=== PATIENT | female | born 1965 | race Caucasian/White ===

== ENCOUNTER 2019-07-02 23:26 | Emergency (ER) | payer OTHER ==
[~2019-07-02] VITALS: Ht 152.4 cm; Wt 70.3 kg
--- OUTSIDE RECORDS SUMMARY | 2019-07-02 23:31 | XMS REPORT | Continuity of Care Document ---
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 Role Phone [employer] Unavailable Unavailable Problems Problem Status Onset Date Classification Date Reported Comments Source Migraine, unspecified, not intractable, without status migrainosus 07/08/2018 01/13/2019 [facility] HEADACHE Active 06/26/2018 [facility] HEADACHE, NAUSEA WITH VOMITING Active 06/26/2018 [facility] ROUTINE Active 09/16/2013 [facility] OVERDOSE Active 08/19/2012 [facility] Morbid (severe) obesity due to excess calories 01/13/2019 [facility] Body mass index (BMI) 30.0-30.9, adult 01/13/2019 [facility] Other and unspecified hyperlipidemia Active Problem 12/28/2018 [facility] Acute non-recurrent maxillary sinusitis Active Diagnosis 12/28/2018 [facility] Anxiety state Active Problem 12/28/2018 [facility] Vitamin D deficiency Active Problem 12/28/2018 [facility] LGSIL (low grade squamous intraepithelial lesion) on Pap smear Active Problem 08/28/2018 [facility] Other headache syndrome Active Problem 07/04/2018 [facility] Human papillomavirus Active Problem 12/28/2018 [facility] Attention deficit disorder Active Problem 12/28/2018 [facility] Acute URI Active Diagnosis 05/10/2017 [facility] Cough Active Diagnosis 12/28/2018 [facility] Acute upper respiratory infection, unspecified Active Diagnosis 03/22/2017 [facility] Sore throat Active Diagnosis 07/02/2018 [facility] Nasal turbinate hypertrophy Active Diagnosis 04/10/2018 [facility] Acute recurrent maxillary sinusitis Active Diagnosis 04/10/2018 [facility] Nasal septal deviation Active Diagnosis 04/10/2018 [facility] Chronic sinusitis, unspecified location Active Problem 12/28/2018 [facility] Allergic rhinitis, unspecified seasonality, unspecified trigger Active Problem 12/28/2018 [facility] 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 [facility] Sinus pressure Active Diagnosis 04/20/2018 [facility] Anxiety Active Problem 03/15/2016 [facility] Hyperlipidemia Active Problem 03/15/2016 [facility] ADD (attention deficit disorder) Active Problem 03/15/2016 [facility] Genital warts Active Diagnosis 08/28/2013 [facility] Screening for STD (sexually transmitted disease) Active Diagnosis 08/28/2013 [facility] Pharyngitis Active Diagnosis 08/28/2013 [facility] Body aches Active Diagnosis 07/18/2013 [facility] Otalgia Active Diagnosis 08/07/2013 [facility] Flu vaccine need Active Diagnosis 08/07/2013 [facility] Acute sinusitis Active Diagnosis 04/20/2014 [facility] Serous otitis media Active Diagnosis 04/20/2014 [facility] Achilles tendinitis of left lower extremity Active Diagnosis 08/28/2018 [facility] Chronic fatigue Active Diagnosis 07/20/2013 [facility] Chronic EBV infection Active Diagnosis 07/20/2013 [facility] HPV (human papilloma virus) infection Active Problem 03/15/2016 [facility] Vitamin d deficiency Active Problem 03/15/2016 [facility] Routine gynecological examination Active Diagnosis 09/21/2013 [facility] Nasal sinus congestion Active Diagnosis 11/01/2013 [facility] Cough Active Diagnosis 02/15/2015 [facility] Upper respiratory infection Active Diagnosis 02/15/2015 [facility] Motion sickness Active Diagnosis 01/15/2014 [facility] Chronic serous otitis media Active Diagnosis 04/20/2014 [facility] Sore throat Active Diagnosis 04/20/2015 [facility] Left ankle pain Active Diagnosis 06/08/2015 [facility] URI (upper respiratory infection) Active Diagnosis 10/26/2015 [facility] SOB (shortness of breath) Active Diagnosis 10/26/2015 [facility] Left ankle sprain Active Diagnosis 03/22/2015 [facility] Acute sinusitis, unspecified Active Diagnosis 01/20/2016 [facility] Fever Active Diagnosis 04/20/2015 [facility] Influenza A Active Diagnosis 04/20/2015 [facility] Sinusitis Active Diagnosis 04/20/2015 [facility] Shingles Active Diagnosis 04/26/2016 [facility] Joint pain Active Diagnosis 04/26/2016 [facility] Left ankle swelling Active Diagnosis 04/26/2016 [facility] Low back pain Active Diagnosis 04/26/2016 [facility] Body aches Active Diagnosis 04/26/2016 [facility] Anxiety Active Diagnosis 04/17/2016 [facility] Screening for breast cancer Active Diagnosis 04/17/2016 [facility] Upper respiratory infection Active Diagnosis 03/15/2016 [facility] Screening for colon cancer Active Diagnosis 10/29/2016 [facility] Urticaria Active Diagnosis 10/29/2016 [facility] LGSIL on Pap smear of cervix Active Problem 12/28/2018 [facility] Hives Active Diagnosis 11/20/2016 [facility] LT ANKLE PAIN Active [facility] [place] LT ANKLE Active [facility] HEADACHE Active [facility] NAUSEA WITH VOMITING, UNSPECIFIED Active [facility] Medications Medication Details Route Status Patient Instructions Ordering Provider Order Date Source ProAir HFA 2 puffs as needed Inhalation Active 108 (90 Base) MCG/ACT Inhalation every 6 hrs [place] 12/21/2018 [facility] Levaquin 1 tablet Orally Active 500 mg Orally Once a day [place] 12/21/2018 [facility] Medrol (Jermain) as directed Orally Active 4 mg Orally as directed [place] 08/27/2018 [facility] Medrol (Jermain) as directed Orally Active 4 MG Orally [place] 08/25/2018 [facility] Tramadol HCl 1 tablet as needed Orally Active 50 mg Orally every 8 hrs PRN [place] 07/03/2018 [facility] Imitrex 1 tablet as needed Orally Active 50 mg Orally 1 tablet PO QD, repeat in 1 hour if no improvement in symptoms [place] 07/01/2018 [facility] Singulair 10 mg, 1 tab, Route: PO, Drug form: TAB, QPM, Dosing Weight 72.727, kg, Start date: 06/27/18 17:00:00 CDT, Duration: 30 day, Stop date: 07/26/18 17:00:00 CDTNotes: (Same as:Singulair) No Longer Active 06/27/2018 [facility] Bystolic 10 mg, 1 tab, Route: PO, Drug form: TAB, Daily, Dosing Weight 72.727, kg, Start date: 06/27/18 9:00:00 CDT, Duration: 30 day, Stop date: 07/26/18 9:00:00 CDTNotes: (same as: Bystolic) No Longer Active 06/27/2018 [facility] Sertraline 50 mg, 1 tab, Route: PO, Drug form: TAB, Daily, Dosing Weight 72.727, kg, Start date: 06/27/18 9:00:00 CDT, Duration: 30 day, Stop date: 07/26/18 9:00:00 CDTNotes: (Same as: Zoloft) No Longer Active 06/27/2018 [facility] methylPREDNISolone SODium SUCCinate 250 mg + Dextrose 5% in Water IV 100 mL Route: IVPB, Drug form: INJ, ONCE, Dosing Weight 72.727, kg, Priority: STAT, Start date: 06/26/18 14:36:00 CDT, Stop date: 06/26/18 14:36:00 CDTNotes: (Same as:Solu-MEDROL, A-Methapred) MEDICATION WASTE Product Size: 500 mg Product Wasted: ___ mg Inactive 06/26/2018 [facility] Sumatriptan 50 MG Oral Tablet [Imitrex] 50 mg, 2 tab, Route: PO, Drug form: TAB, Q2H, Dosing Weight 72.727, kg, PRN Headache 4-6, Priority: STAT, Start date: 06/26/18 8:09:00 CDT, Duration: 30 day, Stop date: 07/26/18 8:08:00 CDTNotes: (Same As: Imitrex) Inactive 06/26/2018 [facility] Acetaminophen 325 MG / Hydrocodone Bitartrate 5 MG Oral Tablet 1 tab, Route: PO, Drug Form: TAB, Dosing Weight 72.727, kg, Q4H, PRN Pain Score 4-6, Start date: 06/26/18 4:33:00 CDT, Duration: 30 day, Stop date: 07/26/18 4:32:00 CDTNotes: (Same as: [place] 325/5) Do not exceed 4gm/day of acetaminophen. Inactive 06/26/2018 [facility] Ondansetron 4 mg, 2 mL, Route: IVP, Drug form: INJ, Q6H, Dosing Weight 72.727, kg, PRN Nausea & Vomiting, Start date: 06/26/18 4:33:00 CDT, Duration: 30 day, Stop date: 07/26/18 4:32:00 CDTNotes: (Same as: [place]) MEDICATION WASTE Product Size: 4 mg Product Wasted: ___ mg Inactive 06/26/2018 [facility] Acetaminophen 650 mg, 2 tab, Route: PO, Drug form: TAB, Q4H, Dosing Weight 72.727, kg, PRN Pain 1-3/Temp > 100.4 F, Start date: 06/26/18 4:33:00 CDT, Duration: 30 day, Stop date: 07/26/18 4:32:00 CDTNotes: Do not exceed 4 gm/day. (Same as: Tylenol) Inactive 06/26/2018 [facility] Bromfed DM 10 ml as needed Orally Active 30-2-10 MG/5ML Orally every 4 hrs Isaías 06/18/2018 [facility] Zithromax Z-Jermain 2 tablets on the first day, then 1 tablet daily for 4 days Orally Active 250 MG Orally Once a day Isaías 06/18/2018 [facility] Cipro 1 tablet Orally Active 500 mg Orally twice a day (bid) [place] 04/09/2018 [facility] Benzonatate 1 capsule Orally Active 200 MG Orally Q8 PRN [place] 04/07/2018 [facility] Levaquin 1 tablet Orally Active 500 mg Orally Once a day [facility]ry [place] 12/19/2017 [facility] ZyrTEC 1 tablet Orally Active 10 MG Orally prn [place] 05/07/2017 [facility] Bromfed DM 10 ml as needed Orally Active 30-2-10 MG/5ML Orally every 6 hrs Christi 05/07/2017 [facility] Zithromax Z-Jermain 2 tablets on the first day, then 1 tablet daily for 4 days Orally Active 250 MG Orally Once a day [place] 03/19/2017 [facility] Medrol (Jermain) as directed Orally Active 4 MG Orally as directed Christi 11/18/2016 [facility] Levaquin 1 tablet Orally Active 500 MG Orally Once a day [place] 10/25/2016 [facility] Loratadine 1 tablet Orally Active 10 MG Orally Once a day Christi 10/25/2016 [facility] Zithromax 2 tablets on the first day, then 1 tablet daily for 4 days Orally Active 250 MG Orally Once a day Christi 09/03/2016 [facility] Naproxen 1 tablet as needed Orally Active 500 MG Orally every 12 hrs prn Christi 09/03/2016 [facility] Naproxen 1 tablet Orally Active 375 MG Orally Twice a day [place] 04/24/2016 [facility] Lidoderm 1 patch to intact skin remove after 12 hours Externally Active 5 % Externally Once a day [place] 04/12/2016 [facility] Valtrex 1 tablet Orally Active 1 GM Orally every 8 hours [place] 04/12/2016 [facility] Levaquin 1 tablet Orally Active 500 mg Orally Once a day Christi 03/13/2016 [facility] Bromfed DM 10 ml as needed Orally Active 30-2-10 MG/5ML Orally every 6 hrs prn Christi 03/13/2016 [facility] Norel AD 1 tablet as needed Orally Active 4-10-325 MG Orally every 4-6 hours Christi 01/18/2016 [facility] Bromfed DM 10 ml as needed Orally Active 30-2-10 MG/5ML Orally every 6 hrs Christi 01/18/2016 [facility] Levaquin 1 tablet Orally Active 500 mg Orally Once a day Christi 01/18/2016 [facility] ProAir HFA 2 puffs as needed Inhalation Active 108 (90 Base) MCG/ACT Inhalation every 4 hrs [facility] 10/24/2015 [facility] Levaquin 1 tablet Orally Active 500 mg Orally Once a day [facility] 10/24/2015 [facility] Bromfed DM 10 ml as needed Orally Active 30-2-10 MG/5ML Orally every 6 hrs as needed [facility] 10/24/2015 [facility] Naproxen 1 tablet as needed Orally Active 500 mg Orally every 12 hrs [place] 05/02/2015 [facility] Bromfed DM 10 ml as needed Orally Active 30-2-10 MG/5ML Orally every 6 hrs [facility] 04/18/2015 [facility] Tamiflu 1 capsule Orally Active 75 mg Orally Twice a day [facility] 04/18/2015 [facility] Zithromax Z-Jermain 2 tablets on the first day, then 1 tablet daily for 4 days Orally Active 250 MG Orally Once a day [facility] 04/18/2015 [facility] Medrol (Jermain) as directed Orally Active 4 mg Orally daily [place] 03/20/2015 [facility] Bromfed DM 10 ml as needed Orally Active 30-2-10 MG/5ML Orally every 6 hrs [place] 02/13/2015 [facility] Zorvolex 1 capsule Orally Active 35 MG Orally Three times a day as needed for foot pain [place] 01/17/2015 [facility] Singulair 1 tablet in the evening Orally Active 10 mg Orally Once a day [facility] 03/16/2014 [facility] Dallergy 1 tablet Orally Active 25-10 MG Orally every six to [address] [facility] 03/16/2014 [facility] Bactrim DS 1 tablet Orally Active 800-160 MG Orally every [address] [facility] 03/16/2014 [facility] Xyzal 1 tablet in the evening Orally Active 5 MG Orally Once a day [facility] 01/19/2014 [facility] Dallergy 1 tablet Orally No Longer Active 25-10 MG Orally every six to eight hours as needed [place] 01/13/2014 [facility] Scopolamine Base as directed Transdermal Active 1.5 MG Transdermal apply one patch every 3 days as needed [place] 01/13/2014 [facility] Levaquin 1 tablet Orally Active 500 mg Orally Once a day [place] 01/13/2014 [facility] Nasonex 2 sprays in each nostril Nasally Active 50 MCG/ACT Nasally Once a day [place] 01/13/2014 [facility] Levaquin 1 tablet Orally Active 500 mg Orally Once a day [facility] 10/27/2013 [facility] Bromfed DM 10 ml as needed Orally Active 30-2-10 MG/5ML Orally every 6 hrs [facility] 10/27/2013 [facility] Vitamin D (Ergocalciferol) 1 capsule Orally Active 22063 UNIT Orally weekly [place] 09/23/2013 [facility] Vitamin D (Ergocalciferol) 1 capsule Orally Active 76641 UNIT Orally weekly [place] 09/23/2013 [facility] Podofilox 1 application to affected area Externally Active 0.5 % Externally Twice a day for 3 days, then 4 days of no treatment, may repeat for up to 4 cycles [place] 08/24/2013 [facility] Dallergy as directed Orally Active 25-10 MG Orally every six to eight hours PRN [place] 08/03/2013 [facility] A/B Otic 1 drop affected ear canal into affected ear Otic Active 5.4-1.4 % Otic Three times a day [place] 08/03/2013 [facility] Levaquin 1 tablet Orally Active 500 mg Orally Once a day [place] 08/03/2013 [facility] Zithromax Z-Jermain 2 tablets on the first day, then 1 tablet daily for 4 days Orally Active 250 MG Orally Once a day Isaías 06/24/2013 [facility] Ativan 2 mg, 1 tab, Route: PO, Drug form: TAB, ONCE, Dosing Weight 76.364, kg, Priority: STAT, Start date: 08/19/12 20:32:00, Stop date: 08/19/12 20:32:00 PO No Longer Active [place] 08/20/2012 [facility] Bystolic 10 mg oral tablet 10 mg, 1 tab, PO, Daily, 30 tab, Substitution Allowed, TAB PO Active 08/19/2012 [facility] sertraline 50 mg oral tablet 50 mg, 1 tab, PO, Daily, 90 tab, Substitution Allowed, TAB PO Active 08/19/2012 [facility] Xanax 0.25 mg oral tablet 0.25 mg, 1 tab, PO, BID, PRN, 20 tab, anxiety, stress, Substitution Allowed PO Active 08/19/2012 [facility] ProAir HFA 2 puffs as needed Inhalation Active 108 (90 Base) MCG/ACT Inhalation every 4 hrs [facility] Breo Ellipta 1 puff Inhalation Active 200-25 MCG/INH Inhalation prn [facility] Adderall XR 1 capsule Orally Active 20 mg Orally Once a day Thierry Hope [facility] ProAir HFA 2 puffs as needed Inhalation Active 108 (90 Base) MCG/ACT [facility] Adderall XR 1 capsule Orally Active 20 mg Orally Once a day [place] [facility] Flonase 1 spray in each nostril Nasally Active 50 MCG/DOSE Nasally Once a day Isa[address] [facility] Excedrin Migraine 2 tablets as needed Orally Active 250-250-65 MG Orally every 6 hrs [facility] Breo Ellipta 1 puff Inhalation Active 200-25 MCG/INH Inhalation prn [facility] Vyvanse 1 capsule in the morning Orally Active 20 MG Orally [facility] Zoloft 1 tablet Orally Active 50 MG Orally Once a day [facility] Clindamycin HCl 1 capsule Orally Active 300 MG Orally Four times a day [facility] Advil 1 tablet as needed Orally Active 200 MG Orally every 6 hrs [facility] Mucinex 1 tablet as needed Orally Active 600 MG Orally every 12 hrs [facility] Mucinex 1 tablet as needed Orally Active 600 MG Orally every [address] [facility] Prempro 1 tablet Orally Active 0.625-2.5 MG Orally Once a day [place] [facility] Adderall XR 1 capsule in the morning Orally Active Orally Once a day [place] [facility] Amphetamine-Dextroamphetamine 1/2 tablet Oral Active 20 mg Oral daily Isaías [facility] Allergies, Adverse Reactions, Alerts Substance Category Reaction Severity Reaction type Status Date Reported Comments Source penicillin Adverse Reaction hives Adverse Reaction Active 08/25/2018 [facility] wheat Adverse Reaction Info Not Available Adverse Reaction Active 08/25/2018 [facility] Iodine Adverse Reaction difficulty breathing Adverse Reaction Active 12/21/2018 [facility] iodine Assertion Drug allergy Active [facility] penicillins Assertion Drug allergy Active [facility] Immunizations Immunization Date Given Site Status Last Updated Comments Source FLU 3YRS & [place] [id number] 08/03/[address] [facility] Results Order Name Results Value Reference Range Date Interpretation Comments Source CHEM PANEL Magnesium Lvl 2.3 1.8 - 2.4 06/26/2018 [facility] CHEM PANEL eGFR 101 06/26/2018 Result Comment: The eGFR is calculated using the CKD-EPI formula. In most young, healthy individuals the eGFR will be >90 mL/min/1.73m2. The eGFR declines with age. An eGFR of 60-89 may be normal in some populations, particularly the elderly, for whom the CKD-EPI formula has not been extensively validated. Use of the eGFR is not recommended in the following populations:

Individuals with unstable creatinine concentrations, including patients and those with serious co-morbid conditions.

Patients with extremes in muscle mass or diet.

The data above are obtained from the National Kidney Disease Education Program (NKDEP) which additionally recommends that when the eGFR is used in patients with extremes of body mass index for purposes of drug dosing, the eGFR should be multiplied by the estimated BMI. [facility] CHEM PANEL Calcium Lvl 8.3 8.5 - 10.5 06/26/2018 [facility] CHEM PANEL CO2 29 24 - 32 06/26/2018 [facility] CHEM PANEL Potassium Lvl 4.0 3.5 - 5.1 06/26/2018 [facility] CHEM PANEL Sodium Lvl 146 135 - 145 06/26/2018 [facility] CHEM PANEL Chloride Lvl 109 95 - 109 06/26/2018 [facility] CHEM PANEL Bili Total 0.3 0.2 - 1.3 06/26/2018 [facility] CHEM PANEL AST 113 0 - 37 06/26/2018 [facility] CHEM PANEL ALT 76 0 - 65 06/26/2018 [facility] CHEM PANEL Alk Phos 102 39 - 136 06/26/2018 [facility] CHEM PANEL Total Protein 6.5 6.4 - 8.4 06/26/2018 [facility] CHEM PANEL Albumin Lvl 3.2 3.5 - 5.0 06/26/2018 [facility] CHEM PANEL Creatinine Lvl 0.70 0.50 - 1.40 06/26/2018 [facility] CHEM PANEL BUN 13 7 - 22 06/26/2018 [facility] CHEM PANEL Glucose Lvl 110 70 - 99 06/26/2018 [facility] CHEM PANEL Globulin 3.3 2.7 - 4.2 06/26/2018 [facility] CHEM PANEL A/G Ratio 1.0 0.7 - 1.6 06/26/2018 [facility] CHEM PANEL B/C Ratio 19 6 - 25 06/26/2018 [facility] CHEM PANEL AGAP 12.0 10.0 - 20.0 06/26/2018 [facility] HEMATOLOGY Eosinophils 0.9 0.0 - 4.0 06/26/2018 [facility] HEMATOLOGY Lymphocytes 25.8 20.0 - 40.0 06/26/2018 [facility] HEMATOLOGY Monocytes # 0.7 0.0 - 0.8 06/26/2018 [facility] HEMATOLOGY Monocytes 9.2 2.0 - 12.0 06/26/2018 [facility] HEMATOLOGY Segs 63.4 45.0 - 75.0 06/26/2018 [facility] HEMATOLOGY Lymphocytes # 2.1 1.0 - 5.5 06/26/2018 [facility] HEMATOLOGY Basophils 0.7 0.0 - 1.0 06/26/2018 [facility] HEMATOLOGY Neutrophils # 5.1 1.5 - 8.1 06/26/2018 [facility] HEMATOLOGY Eosinophils # 0.1 0.0 - 0.5 06/26/2018 [facility] HEMATOLOGY Basophils # 0.1 0.0 - 0.2 06/26/2018 [facility] HEMATOLOGY MCH 28.7 27.0 - 31.0 06/26/2018 [facility] RDW 13.0 11.5 - 14.5 06/26/2018 [facility] HEMATOLOGY MCHC 34.2 32.0 - 36.0 06/26/2018 [facility] HEMATOLOGY Platelet 226 133 - 450 06/26/2018 [facility] MCV 83.8 80.0 - 98.0 06/26/2018 [facility] MPV 7.1 7.4 - 10.4 06/26/2018 [facility] WBC 8.0 3.7 - 10.4 06/26/2018 [facility] RBC 4.41 4.20 - 5.40 06/26/2018 [facility] Hgb 12.6 12.0 - 16.0 06/26/2018 [facility] Hct 36.9 36.0 - 48.0 06/26/2018 [facility] CHEMISTRY Etoh (%) <0.003 08/19/2012 NA <sup>4</sup>Interpretive Data: Negative Range: <0.003%
Toxic Range: >0.25% [facility] CHEMISTRY Ethanol Lvl <3 08/19/2012 NA <sup>5</sup>Interpretive Data: Negative Range: <3 mg/dL
Toxic Range: >250 mg/dL [facility] CHEMISTRY Salicylate Lvl <1.7 0.0 - 30.0 08/19/2012 Normal [facility] CHEMISTRY Acetaminoph Lvl <2 10 - 20 08/19/2012 LOW [facility] CHEMISTRY U Preg Negative (08/19/2012 14:10:00) Negative 08/19/2012 Normal [facility] CHEMISTRY eGFR 89 08/19/2012 NA <sup>1</sup>Result Comment: The eGFR is calculated using the CKD-EPI formula. In most young, healthy individuals the eGFR will be >90 mL/min/1.73m2. The eGFR declines with age. An eGFR of 60-89 may be normal in some populations, particularly the elderly, for whom the CKD-EPI formula has not been extensively validated. Use of the eGFR is not recommended in the following populations:& lt;br/>
Individuals with unstable creatinine concentrations, including patients and those with serious co-morbid conditions.

Patients with extremes in muscle mass or diet.

The data above are obtained from the National Kidney Disease Education Program (NKDEP) which additionally recommends that when the eGFR is used in patients with extremes of body mass index for purposes of drug dosing, the eGFR should be multiplied by the estimated BMI. [facility] CHEMISTRY Glucose Lvl 86 70 - 99 08/19/2012 Normal <sup>2</sup>Interpretive Data: Adult reference range values reflect the clinical guidelines
of the [place] [employer]. [facility] CHEMISTRY Creatinine Lvl 0.8 0.5 - 1.4 08/19/2012 Normal [facility] CHEMISTRY BUN 10 7 - 22 08/19/2012 Normal [facility] CHEMISTRY Potassium Lvl 4.0 3.5 - 5.1 08/19/2012 Normal [facility] CHEMISTRY Sodium Lvl 142 135 - 145 08/19/2012 Normal [facility] CHEMISTRY Albumin Lvl 3.3 3.5 - 5.0 08/19/2012 LOW [facility] CHEMISTRY Calcium Lvl 8.6 8.5 - 10.5 08/19/2012 Normal [facility] CHEMISTRY CO2 26 24 - 32 08/19/2012 Normal [facility] CHEMISTRY Chloride Lvl 108 95 - 109 08/19/2012 Normal [facility] CHEMISTRY Bili Total 0.3 0.2 - 1.3 08/19/2012 Normal [facility] CHEMISTRY AST 13 0 - 37 08/19/2012 Normal [facility] CHEMISTRY ALT 30 0 - 65 08/19/2012 Normal [facility] CHEMISTRY Alk Phos 71 39 - 136 08/19/2012 Normal [facility] CHEMISTRY Total Protein 6.6 6.4 - 8.4 08/19/2012 Normal [facility] CHEMISTRY B/C Ratio 12 6 - 25 08/19/2012 Normal [facility] CHEMISTRY AGAP 12.0 10.0 - 20.0 08/19/2012 Normal [facility] CHEMISTRY A/G Ratio 1.0 0.7 - 1.6 08/19/2012 Normal [facility] CHEMISTRY Globulin 3.3 2.0 - 4.0 08/19/2012 Normal [facility] CHEMISTRY U Phencyc Scr Negative *NA* (08/19/2012 14:10:00) Negative 08/19/2012 NA [facility] CHEMISTRY U Opiate Scr Negative *NA* (08/19/2012 14:10:00) Negative 08/19/2012 NA [facility] CHEMISTRY U Amph Scr Negative *NA* (08/19/2012 14:10:00) Negative 08/19/2012 NA [facility] CHEMISTRY U Cannab Scr Negative *NA* (08/19/2012 14:10:00) Negative 08/19/2012 NA [facility] CHEMISTRY U Cocaine Scr Negative *NA* (08/19/2012 14:10:00) Negative 08/19/2012 NA [facility] CHEMISTRY U Benzodia Scr Positive *ABN* (08/19/2012 14:10:00) Negative 08/19/2012 ABN [facility] CHEMISTRY UDS Note See Note 3 (08/19/2012 14:10:00) 08/19/2012 Normal <sup>3</sup>Interpretive Data: Drugs reported as positive have not been confirmed by a second
method and should be used for medical purposes only. To order
confirmation, contact laboratory.

note: Below are cut-off concentrations for all urine drugs of
abuse performed in the laboratory. Some drugs listed in the table
may not be included in this panel.

Description Cut-off concentration

Amphetamine 1000 ng/mL
Barbiturates 200 ng/mL
Benzodiazepines 300 ng/mL
Cocaine metabolites 300 ng/mL
Opiates 300 ng/mL
Phencyclidine 25 ng/mL
Propoxyphene 300 ng/mL
Marijuana metabolites 50 ng/mL
Methadone 300 ng/m L
Urine alcohol 20 mg/dL [facility] CHEMISTRY U Diana Scr Negative *NA* (08/19/2012 14:10:00) Negative 08/19/2012 NA [facility] HEMATOLOGY MCV 85.8 81.0 - 99.0 08/19/2012 Normal [facility] HEMATOLOGY Hct 38.0 36.0 - 48.0 08/19/2012 Normal [facility] HEMATOLOGY Hgb 12.7 12.0 - 16.0 08/19/2012 Normal [facility] HEMATOLOGY RBC 4.43 4.20 - 5.40 08/19/2012 Normal [facility] HEMATOLOGY WBC 7.6 3.7 - 10.4 08/19/2012 Normal [facility] HEMATOLOGY Platelet 233 133 - 450 08/19/2012 [facility] HEMATOLOGY MPV 7.8 7.4 - 10.4 08/19/2012 Normal [facility] HEMATOLOGY RDW 13.8 11.5 - 14.5 08/19/2012 Normal [facility] HEMATOLOGY MCHC 33.5 32.0 - 36.0 08/19/2012 Normal [facility] HEMATOLOGY MCH 28.7 27.0 - 31.0 08/19/2012 Normal [facility] HEMATOLOGY Basophils # 0.0 0.0 - 0.2 08/19/2012 [facility] HEMATOLOGY Eosinophils # 0.1 0.0 - 0.5 08/19/2012 Normal [facility] HEMATOLOGY Monocytes # 0.5 0.0 - 0.8 08/19/2012 [facility] HEMATOLOGY Lymphocytes # 1.7 1.0 - 5.5 08/19/2012 Normal [facility] HEMATOLOGY Eosinophils 1.2 0.0 - 4.0 08/19/2012 Normal [facility] HEMATOLOGY Monocytes 6.3 2.0 - 12.0 08/19/2012 [facility] HEMATOLOGY Lymphocytes 23.0 20.0 - 40.0 08/19/2012 [facility] HEMATOLOGY Segs 69.3 45.0 - 75.0 08/19/2012 [facility] HEMATOLOGY Segs-Bands # 5.2 1.5 - 8.1 08/19/2012 Normal [facility] HEMATOLOGY Basophils 0.2 0.0 - 1.0 08/19/2012 [facility] URINALYSIS UA Urobilinogen 0.1 - 1.0 08/19/2012 [facility] URINALYSIS UA Color Ltyellow 08/19/2012 [facility] URINALYSIS UA Leuk Est Negative (08/19/2012 14:10:00) Negative 08/19/2012 [facility] URINALYSIS UA Sq Epi Occasional /LPF *NA* (08/19/2012 14:10:00) Few 08/19/2012 [facility] URINALYSIS UA WBC <1 0 - 5 08/19/2012 [facility] URINALYSIS UA RBC <1 0 - 2 08/19/2012 Normal [facility] URINALYSIS UA Mucus Few /LPF *NA* (08/19/2012 14:10:00) None Seen 08/19/2012 [facility] URINALYSIS UA Bili Negative *NA* (08/19/2012 14:10:00) Negative 08/19/2012 NA [facility] URINALYSIS UA Blood Negative (08/19/2012 14:10:00) Negative 08/19/2012 Normal [facility] URINALYSIS UA Nitrite Negative (08/19/2012 14:10:00) Negative 08/19/2012 Normal [facility] URINALYSIS UA Spec Grav 1.005 <=1.030 08/19/2012 Normal [facility] URINALYSIS UA pH 5.0 5.0 - 8.0 08/19/2012 Normal [facility] URINALYSIS UA Protein Negative mg/dL (08/19/2012 14:10:00) Negative 08/19/2012 Normal [facility] URINALYSIS UA Ketones Negative mg/dL *NA* (08/19/2012 14:10:00) Negative 08/19/2012 NA [facility] URINALYSIS UA Glucose Negative mg/dL *NA* (08/19/2012 14:10:00) Negative 08/19/2012 NA [facility] URINALYSIS UA Turbidity Clear (08/19/2012 14:10:00) Clear 08/19/2012 Normal [facility] Pathology Reports No Data Provided for This Section Diagnostic Reports Report Value Date Source Brain wo contrast MRA Patient Name: COLLEEN NOGUERA : 1965; Age: 52 years y/o Female MR: [id number] Study: Brain wo contrast MRA 06/26/2018 8:11 AM CDT Ordering Physician: Evy Garcia MD Clinical Indication: Headache Primary [place] - new onset headaches; Comparison: None Technique: Magnetic resonance angiography of the [place] was performed without contrast. 3D reconstructed images were created. FINDINGS: The petrous, cavernous, ophthalmic and supraclinoid portions of the bilateral internal carotid arteries have normal caliber. The A1 and A2 segments of the bilateral anterior cerebral arteries are unremarkable. Bilateral middle cerebral arteries and its proximal branches have normal caliber. Bilateral vertebral arteries, basilar artery, and posterior cerebral arteries are unremarkable. Posterior communicating arteries are not visualized There is no aneurysm or vascular malformation. IMPRESSION: 1. Grossly normal [place]. 2. No definite cerebral aneurysm detected. SL: [id number] 06/26/2018 [facility] Brain w/wo contrast MRI EXAM: MRI BRAIN WITHOUT AND WITH CONTRAST DATE: 06/26/2018 6:31 AM CDT INDICATION: Headache Primary [place] - headache ADDITIONAL INFORMATION AND CONTRAST: 15ml Dotarem COMPARISON: None. TECHNIQUE: Multiplanar, mutisequence MRI of the brain without and with contrast. FINDINGS: Diffusion weighted images demonstrate no focal signal abnormality. There are multiple scattered nonspecific foci of T2/FLAIR signal abnormality may reflect migraine-related change or mild chronic small vessel ischemic change. No acute intracranial hemorrhage detected. The ventricles are normal in size and symmetric. No extra-axial fluid collection identified. Purdy-white distinction is preserved. No mass lesion or midline shift detected. The intracranial arterial and venous structures demonstrate normal flow voids. Postcontrast sequences demonstrate no definite abnormal enhancement. No definite enhancing parenchymal lesion detected. The visible paranasal sinuses and skull base are unremarkable. IMPRESSION: 1. No definite acute infarct or intracranial hemorrhage detected. 2. Multiple scattered nonspecific foci of T2/FLAIR signal abnormality may reflect migraine-related change or mild chronic small vessel ischemic change. SL: [id number] 06/26/2018 [facility] Consultation Notes No Data Provided for This Section Discharge Summaries No Data Provided for This Section History and Physicals No Data Provided for This Section Vital Signs Vital Sign Value Date Comments Source Weight 167 12/21/2018 [facility] Height 60 12/21/2018 [facility] Temperature Oral (F) 98.6 F 12/21/2018 [facility] Heart Rate 76 12/21/2018 [facility] Diastolic (mm Hg) 74 12/21/2018 [facility] Systolic (mm Hg) 128 12/21/2018 [facility] Weight 164 08/25/2018 [facility] Height 60 08/25/2018 [facility] Heart Rate 70 08/25/2018 [facility] Diastolic (mm Hg) 70 08/25/2018 [facility] Systolic (mm Hg) 120 08/25/2018 [facility] Weight 160 07/01/2018 [facility] Height 60 07/01/2018 [facility] Heart Rate 96 07/01/2018 [facility] Diastolic (mm Hg) 100 07/01/2018 [facility] Systolic (mm Hg) 140 07/01/2018 [facility] Systolic (mm Hg) 165 06/26/2018 [facility] Diastolic (mm Hg) 95 06/26/2018 [facility] Temperature Oral (F) 98.4 F 06/26/2018 [facility] Respitory Rate 17 06/26/2018 [facility] Heart Rate 71 06/26/2018 [facility] Systolic (mm Hg) 132 06/26/2018 [facility] Diastolic (mm Hg) 86 06/26/2018 [facility] Respitory Rate 17 06/26/2018 [facility] Heart Rate 65 06/26/2018 [facility] Temperature Oral (F) 98.0 F 06/26/2018 [facility] Heart Rate 64 06/26/2018 [facility] Respitory Rate 17 06/26/2018 [facility] Systolic (mm Hg) 133 06/26/2018 [facility] Diastolic (mm Hg) 80 06/26/2018 [facility] Temperature Oral (F) 98.2 F 06/26/2018 [facility] BMI Calculated 30.29 06/26/2018 [facility] Weight 72.727 06/26/2018 [facility] Height 154.94 cm 06/26/2018 [facility] Weight 163 06/18/2018 [facility] Height 60 06/18/2018 [facility] Heart Rate 100 06/18/2018 [facility] Diastolic (mm Hg) 94 06/18/2018 [facility] Systolic (mm Hg) 130 06/18/2018 [facility] Weight 165 04/07/2018 [facility] Height 60 04/07/2018 [facility] Heart Rate 76 04/07/2018 [facility] Diastolic (mm Hg) 70 04/07/2018 [facility] Systolic (mm Hg) 120 04/07/2018 [facility] Weight 168 12/19/2017 [facility] Height 60 12/19/2017 [facility] Heart Rate 84 12/19/2017 [facility] Diastolic (mm Hg) 80 12/19/2017 [facility] Systolic (mm Hg) 124 12/19/2017 [facility] Weight 159 05/07/2017 [facility] Height 60 05/07/2017 [facility] Temperature Oral (F) 98.2 F 05/07/2017 [facility] Heart Rate 63 05/07/2017 [facility] Diastolic (mm Hg) 92 05/07/2017 [facility] Systolic (mm Hg) 124 05/07/2017 [facility] Weight 161 03/19/2017 [facility] Height 60 03/19/2017 [facility] Temperature Oral (F) 98.1 F 03/19/2017 [facility] Heart Rate 84 03/19/2017 [facility] Diastolic (mm Hg) 72 03/19/2017 [facility] Systolic (mm Hg) 124 03/19/2017 [facility] Weight 168 11/18/2016 [facility] Height 60 11/18/2016 [facility] Heart Rate 75 11/18/2016 [facility] Diastolic (mm Hg) 82 11/18/2016 [facility] Systolic (mm Hg) 130 11/18/2016 [facility] Weight 170 10/25/2016 [facility] Height 60 10/25/2016 [facility] Heart Rate 70 10/25/2016 [facility] Diastolic (mm Hg) 85 10/25/2016 [facility] Systolic (mm Hg) 130 10/25/2016 [facility] Weight 167 09/03/2016 [facility] Height 60 09/03/2016 [facility] Heart Rate 85 09/03/2016 [facility] Diastolic (mm Hg) 80 09/03/2016 [facility] Systolic (mm Hg) 134 09/03/2016 [facility] Weight 166 04/24/2016 [facility] Height 60 04/24/2016 [facility] Diastolic (mm Hg) 76 04/24/2016 [facility] Systolic (mm Hg) 120 04/24/2016 [facility] Weight 165 04/12/2016 [facility] Height 60 04/12/2016 [facility] Heart Rate 89 04/12/2016 [facility] Diastolic (mm Hg) 82 04/12/2016 [facility] Systolic (mm Hg) 124 04/12/2016 [facility] Weight 165 03/13/2016 [facility] Height 60 03/13/2016 [facility] Temperature Oral (F) 98.0 F 03/13/2016 [facility] Heart Rate 83 03/13/2016 [facility] Diastolic (mm Hg) 70 03/13/2016 [facility] Systolic (mm Hg) 110 03/13/2016 [facility] Weight 170 01/18/2016 [facility] Height 60 01/18/2016 [facility] Temperature Oral (F) 98.3 F 01/18/2016 [facility] Heart Rate 89 01/18/2016 [facility] Diastolic (mm Hg) 78 01/18/2016 [facility] Systolic (mm Hg) 118 01/18/2016 [facility] Weight 173 10/24/2015 [facility] Height 60 10/24/2015 [facility] Temperature Oral (F) 98.1 F 10/24/2015 [facility] Heart Rate 71 10/24/2015 [facility] Diastolic (mm Hg) 88 10/24/2015 [facility] Systolic (mm Hg) 122 10/24/2015 [facility] Weight 168 06/06/2015 [facility] Height 60 06/06/2015 [facility] Temperature Oral (F) 98.1 F 06/06/2015 [facility] Heart Rate 85 06/06/2015 [facility] Diastolic (mm Hg) 80 06/06/2015 [facility] Systolic (mm Hg) 122 06/06/2015 [facility] Weight 168 04/18/2015 [facility] Height 60 04/18/2015 [facility] Temperature Oral (F) 98.3 F 04/18/2015 [facility] Heart Rate 73 04/18/2015 [facility] Diastolic (mm Hg) 80 04/18/2015 [facility] Systolic (mm Hg) 126 04/18/2015 [facility] Weight 166 03/20/2015 [facility] Height 60 03/20/2015 [facility] Temperature Oral (F) 98.1 F 03/20/2015 [facility] Heart Rate 65 03/20/2015 [facility] Diastolic (mm Hg) 74 03/20/2015 [facility] Systolic (mm Hg) 110 03/20/2015 [facility] Weight 170 02/13/2015 [facility] Height 60 02/13/2015 [facility] Heart Rate 76 02/13/2015 [facility] Diastolic (mm Hg) 76 02/13/2015 [facility] Systolic (mm Hg) 118 02/13/2015 [facility] Weight 157 03/16/2014 [facility] Height 60 03/16/2014 [facility] Temperature Oral (F) 98.7 F 03/16/2014 [facility] Heart Rate 78 03/16/2014 [facility] Diastolic (mm Hg) 60 03/16/2014 [facility] Systolic (mm Hg) 118 03/16/2014 [facility] Weight 163 01/13/2014 [facility] Height 60 01/13/2014 [facility] Heart Rate 78 01/13/2014 [facility] Diastolic (mm Hg) 68 01/13/2014 [facility] Systolic (mm Hg) 110 01/13/2014 [facility] Weight 163 01/13/2014 [facility] Height 60 01/13/2014 [facility] Heart Rate 78 01/13/2014 [facility] Diastolic (mm Hg) 68 01/13/2014 [facility] Systolic (mm Hg) 110 01/13/2014 [facility] Weight 166 10/27/2013 [facility] Height 60 10/27/2013 [facility] Temperature Oral (F) 98.9 F 10/27/2013 [facility] Heart Rate 76 10/27/2013 [facility] Diastolic (mm Hg) 78 10/27/2013 [facility] Systolic (mm Hg) 126 10/27/2013 [facility] Weight 169 09/23/2013 [facility] Height 60 09/23/2013 [facility] Heart Rate 72 09/23/2013 [facility] Diastolic (mm Hg) 84 09/23/2013 [facility] Systolic (mm Hg) 122 09/23/2013 [facility] Weight 167 09/14/2013 [facility] Height 60 09/14/2013 [facility] Heart Rate 76 09/14/2013 [facility] Diastolic (mm Hg) 84 09/14/2013 [facility] Systolic (mm Hg) 122 09/14/2013 [facility] Weight 165 08/24/2013 [facility] Height 60 08/24/2013 [facility] Heart Rate 72 08/24/2013 [facility] Diastolic (mm Hg) 82 08/24/2013 [facility] Systolic (mm Hg) 120 08/24/2013 [facility] Weight 164 08/03/2013 [facility] Height 60 08/03/2013 [facility] Temperature Oral (F) 98.3 F 08/03/2013 [facility] Heart Rate 68 08/03/2013 [facility] Diastolic (mm Hg) 78 08/03/2013 [facility] Systolic (mm Hg) 116 08/03/2013 [facility] Weight 163 07/16/2013 [facility] Height 60 07/16/2013 [facility] Heart Rate 72 07/16/2013 [facility] Diastolic (mm Hg) 82 07/16/2013 [facility] Systolic (mm Hg) 116 07/16/2013 [facility] Weight 159 07/06/2013 [facility] Height 60 07/06/2013 [facility] Temperature Oral (F) 98.2 F 07/06/2013 [facility] Heart Rate 80 07/06/2013 [facility] Diastolic (mm Hg) 86 07/06/2013 [facility] Systolic (mm Hg) 122 07/06/2013 [facility] Weight 163 06/24/2013 [facility] Height 60 06/24/2013 [facility] Temperature Oral (F) 100.7 F 06/24/2013 [facility] Heart Rate 80 06/24/2013 [facility] Diastolic (mm Hg) 82 06/24/2013 [facility] Systolic (mm Hg) 124 06/24/2013 [facility] Height 152.40 cm 08/19/2012 [facility] Weight 76.364 08/19/2012 [facility] Encounters Location Location Details Encounter Type Encounter Number Reason For Visit Attending Provider ADM Date DC Date Status Source [facility] Emergency [id number] OVERDOSE MARY ARIANA 08/19/2012 08/19/2012 Active [facility] FEVER [id number] 06/24/2013 06/24/2013 [facility] FEVER [id number] 06/24/2013 06/24/2013 [facility] FEVER [id number] 06/24/2013 06/24/2013 [facility] FEVER [id number] 06/24/2013 06/24/[address] [facility] FEVER [id number] 06/24/2013 06/24/2013 [facility] FEVER [id number] 06/24/2013 06/24/[address] [facility] FEVER [id number] 06/24/2013 06/24/[address] [facility] FEVER [id number] 06/24/2013 06/24/[address] [facility] FEVER [id number] 06/24/2013 06/24/2013 [facility] FEVER [id number] 06/24/2013 06/24/[address] [facility] [facility] FEVER [id number] 06/24/2013 06/24/2013 [facility] FEVER [id number] 06/24/2013 06/24/[address] [facility] FEVER [id number] 06/24/2013 06/24/[address] [facility] FEVER [id number] 06/24/2013 06/24/2013 [facility] FEVER [id number] 06/24/2013 06/24/2013 [facility] FEVER [id number] 06/24/2013 06/24/[address] [facility] FEVER [id number] 06/24/2013 06/24/2013 [facility] FEVER [id number] 06/24/2013 06/24/2013 [facility] FEVER [id number] 06/24/2013 06/24/2013 [facility] FEVER [id number] 06/24/2013 06/24/2013 [facility] FEVER [id number] 06/24/2013 06/24/2013 [facility] Follow-Up [id number] 07/06/2013 07/06/2013 [facility] Follow-Up [id number] 07/06/2013 07/06/2013 [facility] Follow-Up [id number] 07/06/2013 07/06/2013 [facility] Follow-Up [id number] 07/06/2013 07/06/2013 [facility] Follow-Up [id number] 07/06/2013 07/06/2013 [facility] Follow-Up [id number] 07/06/2013 07/06/2013 [facility] Follow-Up [id number] 07/06/2013 07/06/2013 [facility] Follow-Up [id number] 07/06/2013 07/06/2013 [facility] Follow-Up [id number] 07/06/2013 07/06/2013 [facility] Follow-Up [id number] 07/06/2013 07/06/2013 [facility] Follow-Up [id number] 07/06/2013 07/06/2013 [facility] Follow-Up [id number] 07/06/2013 07/06/2013 [facility] Follow-Up [id number] 07/06/2013 07/06/2013 [facility] Follow-Up [id number] 07/06/2013 07/06/2013 [facility] Follow-Up [id number] 07/06/2013 07/06/2013 [facility] Follow-Up [id number] 07/06/2013 07/06/2013 [facility] Follow-Up [id number] 07/06/2013 07/06/2013 [facility] Follow-Up [id number] 07/06/2013 07/06/2013 [facility] Follow-Up [id number] 07/06/2013 07/06/2013 [facility] Follow-Up [id number] 07/06/2013 07/06/2013 [facility] Follow-Up [id number] 07/06/2013 07/06/2013 [facility] Follow-Up [id number] 07/06/2013 07/06/2013 [facility] Follow-Up [id number] 07/06/2013 07/06/2013 [facility] Follow-Up [id number] 07/06/2013 07/06/2013 [facility] FOLLOW-UP [id number] 07/16/2013 07/16/2013 [facility] FOLLOW-UP [id number] 07/16/2013 07/16/2013 [facility] FOLLOW-UP [id number] 07/16/2013 07/16/2013 [facility] FOLLOW-UP [id number] 07/16/2013 07/16/2013 [facility] FOLLOW-UP [id number] 07/16/2013 07/16/2013 [facility] FOLLOW-UP [id number] 07/16/2013 07/16/2013 [facility] FOLLOW-UP [id number] 07/16/2013 07/16/2013 [facility] FOLLOW-UP [id number] 07/16/2013 07/16/2013 [facility] FOLLOW-UP [id number] 07/16/2013 07/16/2013 [facility] FOLLOW-UP [id number] 07/16/2013 07/16/2013 [facility] FOLLOW-UP [id number] 07/16/2013 07/16/2013 [facility] FOLLOW-UP [id number] 07/16/2013 07/16/2013 [facility] FOLLOW-UP [id number] 07/16/2013 07/16/2013 [facility] FOLLOW-UP [id number] 07/16/2013 07/16/2013 [facility] FOLLOW-UP [id number] 07/16/2013 07/16/2013 [facility] FOLLOW-UP [id number] 07/16/2013 07/16/2013 [facility] FOLLOW-UP [id number] 07/16/2013 07/16/2013 [facility] FOLLOW-UP [id number] 07/16/2013 07/16/2013 [facility] FOLLOW-UP [id number] 07/16/2013 07/16/2013 [facility] FOLLOW-UP [id number] 07/16/2013 07/16/2013 [facility] FOLLOW-UP [id number] 07/16/2013 07/16/2013 [facility] FOLLOW-UP [id number] 07/16/2013 07/16/2013 [facility] FOLLOW-UP [id number] 07/16/2013 07/16/2013 [facility] EAR [id number] 08/03/2013 08/03/2013 [facility] EAR [id number] 08/03/2013 08/03/2013 [facility] EAR [id number] 08/03/2013 08/03/2013 [facility] EAR [id number] 08/03/2013 08/03/2013 [facility] EAR [id number] 08/03/2013 08/03/2013 [facility] EAR [id number] 08/03/2013 08/03/2013 [facility] EAR [id number] 08/03/2013 08/03/2013 [facility] EAR [id number] 08/03/2013 08/03/2013 [facility] EAR [id number] 08/03/2013 08/03/2013 [facility] EAR [id number] 08/03/2013 08/03/[address] [facility] EAR [id number] 08/03/2013 08/03/2013 [facility] EAR [id number] 08/03/2013 08/03/2013 [facility] EAR [id number] 08/03/2013 08/03/2013 [facility] EAR [id number] 08/03/2013 08/03/2013 [facility] EAR [id number] 08/03/2013 08/03/2013 [facility] EAR [id number] 08/03/2013 08/03/2013 [facility] EAR [id number] 08/03/2013 08/03/2013 [facility] EAR [id number] 08/03/2013 08/03/2013 [facility] EAR [id number] 08/03/2013 08/03/2013 [facility] EAR [id number] 08/03/2013 08/03/2013 [facility] EAR [id number] 08/03/2013 08/03/2013 [facility] EAR [id number] 08/03/2013 08/03/2013 [facility] std check [id number] 08/24/2013 08/24/2013 [facility] std check [id number] 08/24/2013 08/24/2013 [facility] std check [id number] 08/24/2013 08/24/2013 [facility] std check [id number] 08/24/2013 08/24/2013 [facility] std check [id number] 08/24/2013 08/24/2013 [facility] std check [id number] 08/24/2013 08/24/2013 [facility] std check [id number] 08/24/2013 08/24/2013 [facility] std check [id number] 08/24/2013 08/24/2013 [facility] std check [id number] 08/24/2013 08/24/2013 [facility] std check [id number] 08/24/2013 08/24/2013 [facility] std check [id number] 08/24/2013 08/24/2013 [facility] std check [id number] 08/24/2013 08/24/2013 [facility] std check [id number] 08/24/2013 08/24/2013 [facility] std check [id number] 08/24/2013 08/24/2013 [facility] std check [id number] 08/24/2013 08/24/2013 [facility] std check [id number] 08/24/2013 08/24/2013 [facility] std check [id number] 08/24/2013 08/24/2013 [facility] std check [id number] 08/24/2013 08/24/2013 [facility] std check [id number] 08/24/2013 08/24/2013 [facility] std check [id number] 08/24/2013 08/24/2013 [facility] std check [id number] 08/24/2013 08/24/2013 [facility] WWE [id number] 09/14/2013 09/14/2013 [facility] WWE [id number] 09/14/2013 09/14/2013 [facility] E [id number] 09/14/2013 09/14/2013 [facility] WWE [id number] 09/14/2013 09/14/2013 [facility] WWE [id number] 09/14/2013 09/14/2013 [facility] WWE [id number] 09/14/2013 09/14/2013 [facility] WWE [id number] 09/14/2013 09/14/2013 [facility] WWE [id number] 09/14/2013 09/14/2013 [facility] E [id number] 09/14/2013 09/14/2013 [facility] [id number] 09/14/2013 09/14/2013 [facility] [id number] 09/14/2013 09/14/2013 [facility] [id number] 09/14/2013 09/14/2013 [facility] [id number] 09/14/2013 09/14/2013 [facility] [id number] 09/14/2013 09/14/2013 [facility] [id number] 09/14/2013 09/14/2013 [facility] WW [id number] 09/14/2013 09/14/2013 [facility] E [id number] 09/14/2013 09/14/2013 [facility] E [id number] 09/14/2013 09/14/2013 [facility] E [id number] 09/14/2013 09/14/2013 [facility] follow-up [id number] 09/23/2013 09/23/2013 [facility] follow-up [id number] 09/23/2013 09/23/2013 [facility] follow-up [id number] 09/23/2013 09/23/2013 [facility] follow-up [id number] 09/23/2013 09/23/2013 [facility] follow-up [id number] 09/23/2013 09/23/2013 [facility] follow-up [id number] 09/23/2013 09/23/2013 [facility] follow-up [id number] 09/23/2013 09/23/2013 [facility] follow-up [id number] 09/23/2013 09/23/2013 [facility] follow-up [id number] 09/23/2013 09/23/2013 [facility] follow-up [id number] 09/23/2013 09/23/2013 [facility] follow-up [id number] 09/23/2013 09/23/2013 [facility] follow-up [id number] 09/23/2013 09/23/2013 [facility] follow-up [id number] 09/23/2013 09/23/2013 [facility] follow-up [id number] 09/23/2013 09/23/2013 [facility] follow-up [id number] 09/23/2013 09/23/2013 [facility] follow-up [id number] 09/23/2013 09/23/2013 [facility] follow-up [id number] 09/23/2013 09/23/2013 [facility] follow-up [id number] 09/23/2013 09/23/2013 [facility] FEVER/EAR [id number] 10/27/2013 10/27/2013 [facility] [facility] FEVER/EAR [id number] 10/27/2013 10/27/2013 [facility] FEVER/EAR [id number] 10/27/2013 10/27/2013 [facility] FEVER/EAR [id number] 10/27/2013 10/27/2013 [facility] FEVER/EAR [id number] 10/27/2013 10/27/2013 [facility] FEVER/EAR [id number] 10/27/2013 10/27/2013 [facility] FEVER/EAR [id number] 10/27/2013 10/27/2013 [facility] FEVER/EAR [id number] 10/27/2013 10/27/2013 [facility] FEVER/EAR [id number] 10/27/2013 10/27/2013 [facility] FEVER/EAR [id number] 10/27/2013 10/27/2013 [facility] FEVER/EAR [id number] 10/27/2013 10/27/2013 [facility] FEVER/EAR [id number] 10/27/2013 10/27/2013 [facility] FEVER/EAR [id number] 10/27/2013 10/27/2013 [facility] FEVER/EAR [id number] 10/27/2013 10/27/2013 [facility] FEVER/EAR [id number] 10/27/2013 10/27/2013 [facility] FEVER/EAR [id number] 10/27/2013 10/27/2013 [facility] FEVER/EAR [id number] 10/27/2013 10/27/2013 [facility] ear aches [id number] 01/13/2014 01/13/2014 [facility] ear aches [id number] 01/13/2014 01/13/2014 [facility] ear aches [id number] 01/13/2014 01/13/2014 [facility] ear aches [id number] 01/13/2014 01/13/2014 [facility] ear aches [id number] 01/13/2014 01/13/2014 [facility] ear aches [id number] 01/13/2014 01/13/2014 [facility] ear aches [id number] 01/13/2014 01/13/2014 [facility] ear aches [id number] 01/13/2014 01/13/2014 [facility] ear aches [id number] 01/13/2014 01/13/2014 [place] [facility] ear aches [id number] 01/13/2014 01/13/2014 [facility] ear aches [id number] 01/13/2014 01/13/2014 [facility] ear aches [id number] 01/13/2014 01/13/2014 [facility] ear aches [id number] 01/13/2014 01/13/2014 [place] [facility] ear aches [id number] 01/13/2014 01/13/2014 [facility] ear aches [id number] 01/13/2014 01/13/2014 [facility] ear aches [id number] 01/13/2014 01/13/2014 [facility] [facility] medication change [id number] 01/19/2014 01/19/2014 [facility] [facility] medication change [id number] 01/19/2014 01/19/2014 [facility] medication change [id number] 01/19/2014 01/19/2014 [facility] medication change [id number] 01/19/2014 01/19/2014 [facility] medication change [id number] 01/19/2014 01/19/2014 [facility] medication change [id number] 01/19/2014 01/19/2014 [facility] medication change [id number] 01/19/2014 01/19/2014 [facility] medication change [id number] 01/19/2014 01/19/2014 [facility] medication change [id number] 01/19/2014 01/19/2014 [facility] medication change [id number] 01/19/2014 01/19/2014 [facility] medication change [id number] 01/19/2014 01/19/2014 [place] [facility] medication change [id number] 01/19/2014 01/19/2014 [place] [facility] medication change [id number] 01/19/2014 01/19/2014 [place] [facility] medication change [id number] 01/19/2014 01/19/2014 [place] [facility] medication change [id number] 01/19/2014 01/19/2014 [place] [facility] sinus,ears [id number] 03/16/2014 03/16/2014 [facility] [facility] sinus,ears [id number] 03/16/2014 03/16/2014 [place] [facility] sinus,ears [id number] 03/16/2014 03/16/2014 [place] [facility] sinus,ears [id number] 03/16/2014 03/16/2014 [facility] [facility] sinus,ears [id number] 03/16/2014 03/16/2014 [facility] [facility] sinus,ears [id number] 03/16/2014 03/16/2014 [facility] sinus,ears [id number] 03/16/2014 03/16/2014 [facility] sinus,ears [id number] 03/16/2014 03/16/2014 [facility] sinus,ears [id number] 03/16/2014 03/16/2014 [facility] sinus,ears [id number] 03/16/2014 03/16/2014 [facility] sinus,ears [id number] 03/16/2014 03/16/2014 [facility] sinus,ears [id number] 03/16/2014 03/16/2014 [facility] sinus,ears [id number] 03/16/2014 03/16/2014 [facility] sinus,ears [id number] 03/16/2014 03/16/2014 [facility] RIGHT FOOT PAIN [id number] 01/17/2015 01/17/2015 [facility] RIGHT FOOT PAIN [id number] 01/17/2015 01/17/2015 [facility] RIGHT FOOT PAIN [id number] 01/17/2015 01/17/2015 [facility] RIGHT FOOT PAIN [id number] 01/17/2015 01/17/2015 [facility] RIGHT FOOT PAIN [id number] 01/17/2015 01/17/2015 [facility] RIGHT FOOT PAIN [id number] 01/17/2015 01/17/2015 [facility] RIGHT FOOT PAIN [id number] 01/17/2015 01/17/2015 [facility] RIGHT FOOT PAIN [id number] 01/17/2015 01/17/2015 [facility] RIGHT FOOT PAIN [id number] 01/17/2015 01/17/2015 [facility] RIGHT FOOT PAIN [id number] 01/17/2015 01/17/2015 [facility] RIGHT FOOT PAIN [id number] 01/17/2015 01/17/2015 [facility] RIGHT FOOT PAIN [id number] 01/17/2015 01/17/2015 [facility] RIGHT FOOT PAIN [id number] 01/17/2015 01/17/2015 [place] [facility] COUGH/SORE THROAT [id number] 02/13/2015 02/13/2015 [place] COUGH/SORE THROAT [id number] 02/13/2015 02/13/2015 [facility] COUGH/SORE THROAT [id number] 02/13/2015 02/13/2015 [facility] COUGH/SORE THROAT [id number] 02/13/2015 02/13/2015 [facility] COUGH/SORE THROAT [id number] 02/13/2015 02/13/2015 [facility] COUGH/SORE THROAT [id number] 02/13/2015 02/13/2015 [facility] COUGH/SORE THROAT [id number] 02/13/2015 02/13/2015 [facility] COUGH/SORE THROAT [id number] 02/13/2015 02/13/2015 [place] COUGH/SORE THROAT [id number] 02/13/2015 02/13/2015 [place] [facility] COUGH/SORE THROAT [id number] 02/13/2015 02/13/2015 [facility] COUGH/SORE THROAT [id number] 02/13/2015 02/13/2015 [facility] COUGH/SORE THROAT [id number] 02/13/2015 02/13/2015 [facility] COUGH/SORE THROAT [id number] 02/13/2015 02/13/2015 [facility] LEFT ANKLE PAIN [id number] 03/20/2015 03/20/2015 [facility] LEFT ANKLE PAIN [id number] 03/20/2015 03/20/2015 [facility] LEFT ANKLE PAIN [id number] 03/20/2015 03/20/2015 [facility] LEFT ANKLE PAIN [id number] 03/20/2015 03/20/2015 [facility] LEFT ANKLE PAIN [id number] 03/20/2015 03/20/2015 [facility] LEFT ANKLE PAIN [id number] 03/20/2015 03/20/2015 [facility] LEFT ANKLE PAIN [id number] 03/20/2015 03/20/2015 [facility] LEFT ANKLE PAIN [id number] 03/20/2015 03/20/2015 [facility] LEFT ANKLE PAIN [id number] 03/20/2015 03/20/2015 [facility] [facility] LEFT ANKLE PAIN [id number] 03/20/2015 03/20/2015 [facility] LEFT ANKLE PAIN [id number] 03/20/2015 03/20/2015 [facility] LEFT ANKLE PAIN [id number] 03/20/2015 03/20/2015 [facility] [facility] sinus [id number] 04/18/2015 04/18/2015 [facility] sinus [id number] 04/18/2015 04/18/2015 [facility] sinus [id number] 04/18/2015 04/18/2015 [facility] sinus [id number] 04/18/2015 04/18/2015 [facility] sinus [id number] 04/18/2015 04/18/2015 [facility] sinus [id number] 04/18/2015 04/18/2015 [facility] sinus [id number] 04/18/2015 04/18/2015 [facility] sinus [id number] 04/18/2015 04/18/2015 [facility] sinus [id number] 04/18/2015 04/18/2015 [facility] sinus [id number] 04/18/2015 04/18/2015 [facility] sinus [id number] 04/18/2015 04/18/2015 [facility] LEFT ANKLE PAIN (STILL HAVING PAIN) [id number] 05/02/2015 05/02/2015 [facility] LEFT ANKLE PAIN (STILL HAVING PAIN) [id number] 05/02/2015 05/02/2015 [facility] LEFT ANKLE PAIN (STILL HAVING PAIN) [id number] 05/02/2015 05/02/2015 [facility] LEFT ANKLE PAIN (STILL HAVING PAIN) [id number] 05/02/2015 05/02/2015 [facility] LEFT ANKLE PAIN (STILL HAVING PAIN) [id number] 05/02/2015 05/02/2015 [facility] LEFT ANKLE PAIN (STILL HAVING PAIN) [id number] 05/02/2015 05/02/2015 [facility] LEFT ANKLE PAIN (STILL HAVING PAIN) [id number] 05/02/2015 05/02/2015 [facility] LEFT ANKLE PAIN (STILL HAVING PAIN) [id number] 05/02/2015 05/02/2015 [facility] LEFT ANKLE PAIN (STILL HAVING PAIN) [id number] 05/02/2015 05/02/2015 [facility] LEFT ANKLE PAIN (STILL HAVING PAIN) [id number] 05/02/2015 05/02/2015 [facility] OP Therapy Patients [id number] Tabitha [facility]amaAlciia 05/09/2015 06/08/2015 [facility] left ankle pain [id number] 06/06/2015 06/06/2015 [facility] left ankle pain [id number] 06/06/2015 06/06/2015 [facility] left ankle pain [id number] 06/06/2015 06/06/2015 [facility] left ankle pain [id number] 06/06/2015 06/06/2015 [facility] left ankle pain [id number] 06/06/2015 06/06/2015 [facility] left ankle pain [id number] 06/06/2015 06/06/2015 [facility] left ankle pain [id number] 06/06/2015 06/06/2015 [facility] left ankle pain [id number] 06/06/2015 06/06/2015 [facility] left ankle pain [id number] 06/06/2015 06/06/2015 [facility] left ankle pain [id number] 06/06/2015 06/06/2015 [facility] [place] OP Therapy Patients [id number] Brannon Ramos 06/29/2015 07/29/2015 [facility] [place] OP Therapy Patients [id number] Brannon Ramos 08/01/2015 08/09/2015 [facility] sick [id number] 10/24/2015 10/24/2015 [facility] sick [id number] 10/24/2015 10/24/2015 [facility] sick [id number] 10/24/2015 10/24/2015 [facility] sick [id number] 10/24/2015 10/24/2015 [facility] sick [id number] 10/24/2015 10/24/2015 [facility] sick [id number] 10/24/2015 10/24/2015 [facility] sick [id number] 10/24/2015 10/24/2015 [facility] sick [id number] 10/24/2015 10/24/2015 [facility] sick [id number] 10/24/2015 10/24/2015 [facility] Cough, congestion, sore throat [id number] 01/18/2016 01/18/2016 [facility] Cough, congestion, sore throat [id number] 01/18/2016 01/18/2016 [facility] Cough, congestion, sore throat [id number] 01/18/2016 01/18/2016 [facility] Cough, congestion, sore throat [id number] 01/18/2016 01/18/2016 [facility] Cough, congestion, sore throat [id number] 01/18/2016 01/18/2016 [facility] Cough, congestion, sore throat [id number] 01/18/2016 01/18/2016 [facility] Cough, congestion, sore throat [id number] 01/18/2016 01/18/2016 [facility] Cough, congestion, sore throat [id number] 01/18/2016 01/18/2016 [facility] Coughing, congestion, sore throat [id number] 03/13/2016 03/13/2016 [facility] Coughing, congestion, sore throat [id number] 03/13/2016 03/13/2016 [facility] Coughing, congestion, sore throat [id number] 03/13/2016 03/13/2016 [facility] Coughing, congestion, sore throat [id number] 03/13/2016 03/13/2016 [facility] Coughing, congestion, sore throat [id number] 03/13/2016 03/13/2016 [facility] Coughing, congestion, sore throat [id number] 03/13/2016 03/13/2016 [facility] Coughing, congestion, sore throat [id number] 03/13/2016 03/13/2016 [facility] RASH ON RIGHT LEG [id number] 04/12/2016 04/12/2016 [facility] RASH ON RIGHT LEG [id number] 04/12/2016 04/12/2016 [facility] RASH ON RIGHT LEG [id number] 04/12/2016 04/12/2016 [facility] RASH ON RIGHT LEG [id number] 04/12/2016 04/12/2016 [facility] RASH ON RIGHT LEG [id number] 04/12/2016 04/12/2016 [facility] RASH ON RIGHT LEG [id number] 04/12/2016 04/12/2016 [facility] PAIN ON THE RIGHT LEG [id number] 04/24/2016 04/24/2016 [facility] PAIN ON THE RIGHT LEG [id number] 04/24/2016 04/24/2016 [facility] PAIN ON THE RIGHT LEG [id number] 04/24/2016 04/24/2016 [facility] PAIN ON THE RIGHT LEG [id number] 04/24/2016 04/24/2016 [facility] PAIN ON THE RIGHT LEG [id number] 04/24/2016 04/24/2016 [facility] Unknown [id number] 05/08/2016 05/08/2016 [facility] Unknown [id number] 05/08/2016 05/08/2016 [facility] Unknown [id number] 05/08/2016 05/08/2016 [facility] Unknown [id number] 05/08/2016 05/08/2016 [facility] OP Therapy Patients [id number] Brannon Ramos 05/29/2016 06/28/2016 [facility] OP Therapy Patients [id number] Brannon Ramos 07/02/2016 08/01/2016 [facility] HEADACHES AND BP ISSUES [id number] 09/03/2016 09/03/2016 [facility] HEADACHES AND BP ISSUES [id number] 09/03/2016 09/03/2016 [facility] HEADACHES AND BP ISSUES [id number] 09/03/2016 09/03/2016 [facility] [id number] 10/25/2016 10/25/2016 [facility] [id number] 10/25/2016 10/25/2016 [facility] HIVES [id number] 11/18/2016 11/18/2016 [facility] Observation [id number] Eduardo Leland Segovia 06/26/2018 06/26/2018 [facility] Outpatient [id number] ROUTINE AMIR GHEBRANIOUS Active [facility] Procedures Procedure Code Date Perfomer Comments Source Admission to hand surgery department [id number] [facility] Breast reduction [id number] [facility] section [id number] [facility] Laparoscopic cholecystectomy [id number] [facility] Tubal ligation [id number] [facility] Assessment and Plan Assessment and Plan Date Source Extracted from:Title: Discharge Summary * Author: Gaurang Mayorga MD Date: 06/26/18 Discharge Information Disposition to home Condition stable Medications: See med reconciliation form Diet: Heart healthy Discharge Plan In the event of any worsening symptoms patient was to come back to the ED for further evaluation Discharge summary to greater than 35 minutes Extracted from:Title: Neurology Consult Note Author: Evy Garcia MD Date: 06/26/18 Impression and Plan 1. Postcoital headaches (with migrainous features) 2. Transaminitis Plan: Pending MRI of brain without/with contrast. Check MRA of brain without contrast. Trial of Imitrex 50 mg p.o. for headaches - may repeat in 2 hours if required. Further recommendations based on clinical improvement and imaging study results. Discussed with the patient and nurse. Addendum: Reviewed MRI studies. Discussed with patient's nurse. Patient continued having headaches Solu-Medrol 250 mg IV 1 given and her headaches got better. Patient may be discharged from neurological standpoint. Outpatient neurology clinic follow-up in 1 week. Thank you very much for this opportunity to participate in the care of your patient. 06/26/2018 [facility] Plan of [facility] No Data Provided for This Section Social History Social History Date Source Social History ElementQualifiersDate Reported Depression Screening: . negative Nov 18, 2016 Last Colonoscopy: . never Nov 18, 2016 Last Bone Density: . never Nov 18, 2016 Ethnicity . Status Nov 18, 2016 Where or with whom do you live ? . with self Nov 18, 2016 Flu Vaccine: . 08/2016 at her job Nov 18, 2016 children . 2 Nov 18, 2016 Tobacco Use: . Are you a: never smoker Nov 18, 2016 Use of recreational / street drugs? . Answer: No Nov 18, 2016 Marital Status: single. Nov 18, 2016 Do you drink alcohol? . Status: Yes, Type: Wine, How often? 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 Frequency: 1-2 times per month. Previous treatment: None. Alcohol use interferes with work or home: No. Drinks more than intended: No. Others hurt by drinking: No. Ready to change: No. Household alcohol concerns: No. Smoking Status Never smoker; Exposure to Tobacco Smoke None; Cigarette Smoking Last 365 Days No; Reg Smoking Cessation Counseling No 03/23/2014 [facility] Social History TypeResponse Alcohol Current, Type Wine. Frequency: 1-2 times per month. Previous treatment: None. Alcohol use interferes with work or home: No. Drinks more than intended: No. Others hurt by drinking: No. Ready to change: No. Household alcohol concerns: No. Smoking Status Never smoker; Exposure to Tobacco Smoke None; Cigarette Smoking Last 365 Days No; Reg Smoking Cessation Counseling No entered on: 06/26/18 03/23/2014 [facility] Family History Value Date Source QualifierDescriptionCommentDate Reported Maternal Grandmother Comment not available Nov 18, 2016 Paternal Grandmother Comment not available Nov 18, 2016 Siblings Comment not available Nov 18, 2016 Maternal Grandfather Comment not available Nov 18, 2016 Children alive Comment not available Nov 18, 2016 Father bladder cancer Nov 18, 2016 Paternal Grandfather Comment not available Nov 18, 2016 Mother hepatitis c, heart attack Nov 18, 2016 Other: Comment not available Nov 18, 2016 11/20/2016 [facility] QualifierDescriptionCommentDate Reported Maternal Grandmother Comment not available Oct 25, 2016 Paternal Grandmother Comment not available Oct 25, 2016 Siblings Comment not available Oct 25, 2016 Maternal Grandfather Comment not available Oct 25, 2016 Children alive Comment not available Oct 25, 2016 Father bladder cancer Oct 25, 2016 Paternal Grandfather Comment not available Oct 25, 2016 Mother hepatitis c, heart attack Oct 25, 2016 Other: Comment not available Oct 25, 2016 10/29/2016 [facility] QualifierDescriptionCommentDate Reported Maternal Grandmother Comment not available Sep 03, 2016 Paternal Grandmother Comment not available Sep 03, 2016 Siblings Comment not available Sep 03, 2016 Maternal Grandfather Comment not available Sep 03, 2016 Children alive Comment not available Sep 03, 2016 Father bladder cancer Sep 03, 2016 Paternal Grandfather Comment not available Sep 03, 2016 Mother hepatitis c, heart attack Sep 03, 2016 Other: Comment not available Sep 03, 2016 09/05/2016 [facility] QualifierDescriptionCommentDate Reported Maternal Grandmother Comment not available April 12, 2016 Paternal Grandmother Comment not available April 12, 2016 Siblings Comment not available April 12, 2016 Maternal Grandfather Comment not available April 12, 2016 Children alive Comment not available April 12, 2016 Father bladder cancer April 12, 2016 Paternal Grandfather Comment not available April 12, 2016 Mother hepatitis c, heart attack April 12, 2016 Other: Comment not available April 12, 2016 04/17/2016 [facility] QualifierDescriptionCommentDate Reported Maternal Grandmother Comment not available March 13, 2016 Paternal Grandmother Comment not available March 13, 2016 Siblings Comment not available March 13, 2016 Maternal Grandfather Comment not available March 13, 2016 Children alive Comment not available March 13, 2016 Father bladder cancer March 13, 2016 Paternal Grandfather Comment not available March 13, 2016 Mother hepatitis c, heart attack March 13, 2016 Other: Comment not available March 13, 2016 03/15/2016 [facility] QualifierDescriptionCommentDate Reported Maternal Grandmother Comment not available January 18, 2016 Paternal Grandmother Comment not available January 18, 2016 Siblings Comment not available January 18, 2016 Maternal Grandfather Comment not available January 18, 2016 Children alive Comment not available January 18, 2016 Father bladder cancer January 18, 2016 Paternal Grandfather Comment not available January 18, 2016 Mother hepatitis c, heart attack January 18, 2016 Other: Comment not available January 18, 2016 01/20/2016 [facility] QualifierDescriptionCommentDate Reported Maternal Grandmother Comment not available Oct 24, 2015 Paternal Grandmother Comment not available Oct 24, 2015 Siblings Comment not available Oct 24, 2015 Maternal Grandfather Comment not available Oct 24, 2015 Children alive Comment not available Oct 24, 2015 Father bladder cancer Oct 24, 2015 Paternal Grandfather Comment not available Oct 24, 2015 Mother hepatitis c, heart attack Oct 24, 2015 Other: Comment not available Oct 24, 2015 10/26/2015 [facility] QualifierDescriptionCommentDate Reported Maternal Grandmother Comment not available June 06, 2015 Paternal Grandmother Comment not available June 06, 2015 Siblings Comment not available June 06, 2015 Maternal Grandfather Comment not available June 06, 2015 Children alive Comment not available June 06, 2015 Father bladder cancer June 06, 2015 Paternal Grandfather Comment not available June 06, 2015 Mother hepatitis c, heart attack June 06, 2015 Other: Comment not available June 06, 2015 06/08/2015 [facility] QualifierDescriptionCommentDate Reported Maternal Grandmother Comment not available April 18, 2015 Paternal Grandmother Comment not available April 18, 2015 Siblings Comment not available April 18, 2015 Maternal Grandfather Comment not available April 18, 2015 Children alive Comment not available April 18, 2015 Father bladder cancer April 18, 2015 Paternal Grandfather Comment not available April 18, 2015 Mother hepatitis c, heart attack April 18, 2015 Other: Comment not available April 18, 2015 04/20/2015 [facility] QualifierDescriptionCommentDate Reported Maternal Grandmother Comment not available March 20, 2015 Paternal Grandmother Comment not available March 20, 2015 Siblings Comment not available March 20, 2015 Maternal Grandfather Comment not available March 20, 2015 Children alive Comment not available March 20, 2015 Father bladder cancer March 20, 2015 Paternal Grandfather Comment not available March 20, 2015 Mother hepatitis c, heart attack March 20, 2015 Other: Comment not available March 20, 2015 03/22/2015 [facility] QualifierDescriptionCommentDate Reported Father bladder cancer February 13, 2015 Mother hepatitis c, heart attack February 13, 2015 Children alive Comment not available February 13, 2015 02/15/2015 [facility] QualifierDescriptionCommentDate Reported Father bladder cancer March 16, 2014 Mother hepatitis c, heart attack March 16, 2014 Children alive Comment not available March 16, 2014 04/20/2014 [facility] QualifierDescriptionCommentDate Reported Father bladder cancer January 13, 2014 Mother hepatitis c, heart attack January 13, 2014 Children alive Comment not available January 13, 2014 01/15/2014 [facility] QualifierDescriptionCommentDate Reported Father bladder cancer Oct 27, 2013 Mother hepatitis c, heart attack Oct 27, 2013 Children alive Comment not available Oct 27, 2013 11/01/2013 [facility] QualifierDescriptionCommentDate Reported Father bladder cancer Sep 23, 2013 Mother hepatitis c, heart attack Sep 23, 2013 Children alive Comment not available Sep 23, 2013 09/28/2013 [facility] QualifierDescriptionCommentDate Reported Father bladder cancer Sep 14, 2013 Mother hepatitis c, heart attack Sep 14, 2013 Children alive Comment not available Sep 14, 2013 09/21/2013 [facility] QualifierDescriptionCommentDate Reported Father bladder cancer Aug 24, 2013 Mother hepatitis c, heart attack Aug 24, 2013 Children alive Comment not available Aug 24, 2013 08/28/2013 [facility] QualifierDescriptionCommentDate Reported Father bladder cancer Jun 24, 2013 Mother hepatitis c, heart attack Jun 24, 2013 Children alive Comment not available Jun 24, 2013 08/28/2013 [facility] QualifierDescriptionCommentDate Reported Father bladder cancer Aug 03, 2013 Mother hepatitis c, heart attack Aug 03, 2013 Children alive Comment not available Aug 03, 2013 08/07/2013 [facility] QualifierDescriptionCommentDate Reported Father bladder cancer Jul 16, 2013 Mother hepatitis c, heart attack Jul 16, 2013 Children alive Comment not available Jul 16, 2013 07/20/2013 [facility] QualifierDescriptionCommentDate Reported Father bladder cancer Jul 06, 2013 Mother hepatitis c, heart attack Jul 06, 2013 Children alive Comment not available Jul 06, 2013 07/18/2013 [facility] Advance Directives No Data Provided for This Section Functional Status No Data Provided for This Section
--- OUTSIDE RECORDS SUMMARY | 2019-07-02 23:32 | XMS REPORT ---
Author Author Tabitha Amato Organization [employer] Address Unknown Phone Unavailable Care Team Providers Care Education Analyst Name Role Phone Tabitha Amato CP Unavailable Allergies, Adverse Reactions, Alerts Substance Reaction Event Type penicillin hives Drug Allergy Iodine difficulty breathing Drug Allergy Problems Problem Type Condition Code Onset Dates Condition Status Assessment Other and unspecified hyperlipidemia E78.5 Active Assessment Acute non-recurrent maxillary sinusitis J01.00 Active Assessment Anxiety state F41.1 Active Assessment Vitamin D deficiency E55.9 Active Problem LGSIL (low grade squamous intraepithelial lesion) on Pap smear 796.9 Active Problem Vitamin D deficiency E55.9 Active Problem Other headache syndrome G44.89 Active Problem Anxiety state F41.1 Active Problem Other and unspecified hyperlipidemia E78.5 Active Problem Human papillomavirus A63.0 Active Problem Attention deficit disorder F90.0 Active Medications Medication Code System Code Instructions Start Date End Date Status Dosage ProAir HFA [facility] [id number] 108 (90 Base) MCG/ACT Inhalation every 4 hrs Active 2 puffs as needed Breo Ellipta [facility] [address]-88 200-25 MCG/INH Inhalation prn Active 1 puff Adderall XR [facility] [address]-44 20 mg Orally Once a day Active 1 capsule Levaquin [facility] 66773386999 500 mg Orally Once a day Dec 19, 2017 Dec 26, 2017 Active 1 tablet ZyrTEC NDC 0 5 MG Orally prn May 07, 2017 Active 1 tablet Vital Signs Date/Time: Dec 19, 2017 BMI 32.81 Index Weight 168 lbs Height 60 in Cardiac Monitoring Heart Rate 84 /min Blood Pressure Diastolic 80 mm Hg Blood Pressure Systolic 124 mm Hg Results No Known Results Summary Purpose [employer] Submission
--- OUTSIDE RECORDS SUMMARY | 2019-07-02 23:32 | XMS REPORT ---
Author Author Maribel De Leon [facility] [employer] Address Unknown Phone Unavailable Care Team Providers Care Tallow Maker Name Role Phone Maribel De Leon CP Unavailable Allergies No Known Allergies Problems Problem Type Condition Code Onset Dates Condition Status Problem Chronic sinusitis, unspecified location J32.9 Active Problem Allergic rhinitis, unspecified seasonality, unspecified trigger J30.9 Active Problem LGSIL (low grade squamous intraepithelial lesion) on Pap smear 796.9 Active Problem Vitamin D deficiency E55.9 Active Problem Other headache syndrome G44.89 Active Problem Anxiety state F41.1 Active Problem Other and unspecified hyperlipidemia E78.5 Active Problem Human papillomavirus A63.0 Active Problem Attention deficit disorder F90.0 Active Medications Medication Code System Code Instructions Start Date End Date Status Dosage Tramadol HCl [facility] [id number] 50 mg Orally every 8 hrs PRN Jul 03, 2018 Jul 10, 2018 Active 1 tablet as needed Results No Known Results Summary Purpose [employer] Submission
--- OUTSIDE RECORDS SUMMARY | 2019-07-02 23:32 | XMS REPORT | Summary of Care ---
Author Author [facility] Address Unknown Phone Unavailable Encounter MIRTHA Joyner(DOUG) [id number] Date(s): 05/09/15 - 06/07/15 [facility] Discharge Disposition: Home Attending Physician: Tabitha Benedict DO Vital Signs No data available for this section Problem List No data available for this section Allergies, Adverse Reactions, Alerts Substance Reaction Severity Status iodine Active penicillins Active Medications No data available for this section Results No data available for this section Immunizations No data available for this section Procedures Procedure Date Related Diagnosis Body Site section Laparoscopic cholecystectomy Tubal ligation Social History Social History Type Response Alcohol Current, Type Wine. Frequency: 1-2 times per month. Previous treatment: None. Alcohol use interferes with work or home: No. Drinks more than intended: No. Others hurt by drinking: No. Ready to change: No. Household alcohol concerns: No. Smoking Status Never smoker; Exposure to Tobacco Smoke None; Cigarette Smoking Last 365 Days No; Reg Smoking Cessation Counseling No Assessment and Plan No data available for this section
--- OUTSIDE RECORDS SUMMARY | 2019-07-02 23:32 | XMS REPORT ---
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 Problem Human papillomavirus A63.0 Active Problem Attention deficit disorder F90.0 Active Problem Vitamin D deficiency E55.9 Active Problem Chronic sinusitis, unspecified location J32.9 Active Problem LGSIL on Pap smear of cervix R87.612 Active Problem Anxiety state F41.1 Active Problem Other and unspecified hyperlipidemia E78.5 Active Assessment Other and unspecified hyperlipidemia E78.5 Active Assessment Colon cancer screening Z12.11 Active Assessment Cough R05 Active Assessment Acute non-recurrent maxillary sinusitis J01.00 Active Medications Medication Code System Code Instructions Start Date End Date Status Dosage Amphetamine-Dextroamphetamine [facility] [address]-55 20 mg Oral daily Active 1/2 tablet Medrol (Jermain) NDC 0 4 mg Orally as directed Aug 27, 2018 Active as directed ProAir HFA [facility] 91538400264 108 (90 Base) MCG/ACT Inhalation every 6 hrs Dec 21, 2018 Active 2 puffs as needed Flonase [facility] [address]-39 50 MCG/DOSE Nasally Once a day Active 1 spray in each nostril Levaquin [facility] 83383443888 500 mg Orally Once a day Dec 21, 2018 Dec 31, 2018 Active 1 tablet Medrol (Jermain) NDC 0 4 MG Orally Aug 25, 2018 Active as directed Vital Signs Date/Time: Dec 21, 2018 BMI 32.61 Index Weight 167 lbs Height 60 in Temperature 98.6 F Cardiac Monitoring Heart Rate 76 /min Blood Pressure Diastolic 74 mm Hg Blood Pressure Systolic 128 mm Hg Results No Known Results Summary Purpose eClinicalWorks Submission
--- OUTSIDE RECORDS SUMMARY | 2019-07-02 23:32 | XMS REPORT | CCD ---
Author Author Auto Generated Organization [facility] Address Unknown Phone Unavailable Care Team Providers Care Visual And Stock Associate Name Role Phone Adam Nicole CP Allergies, Adverse Reactions, Alerts Substance Reaction Status iodine Active penicillins Active Medications Medication Instructions Start Date End Date Status Ativan 2 mg, 1 tab, Route: PO, Drug form: 08/19/2012 08/19/2012 Completed TAB, ONCE, Dosing Weight 76.364, kg, Priority: STAT, Start date: 08/19/12 20:32:00, Stop date: 08/19/12 20:32:00 Bystolic 10 mg oral 10 mg, 1 tab, PO, Daily, 30 tab, 08/19/2012 Ordered tablet Substitution Allowed, TAB sertraline 50 mg 50 mg, 1 tab, PO, Daily, 90 tab, 08/19/2012 Ordered oral tablet Substitution Allowed, TAB Xanax 0.25 mg oral 0.25 mg, 1 tab, PO, BID, PRN, 20 08/19/2012 Ordered tablet tab, anxiety, stress, Substitution Allowed Vital Signs Most recent to oldest [Reference Range]: 1 Height 152.40 cm (08/19/2012 13:58:00) Weight 76.364 kg (08/19/2012 13:58:00) Results URINALYSIS Most recent to oldest [Reference Range]: 1 UA Turbidity [Clear] Clear (08/19/2012 14:10:00) UA Color Ltyellow *NA* (08/19/2012 14:10:00) UA pH [5.0-8.0] 5.0 (08/19/2012 14:10:00) UA Spec Grav [<=1.030] 1.005 (08/19/2012 14:10:00) UA Glucose [Negative mg/dL] Negative mg/dL *NA* (08/19/2012 14:10:00) UA Blood [Negative] Negative (08/19/2012:10:00) UA Ketones [Negative mg/dL] Negative mg/dL *NA* (08/19/2012:10:) UA Protein [Negative mg/dL] Negative mg/dL (08/19/2012:10:00) UA Urobilinogen [0.1-1.0 mg/dL] <=1.0 mg/dL *NA* (08/19/2012:10:00) UA Bili [Negative] Negative *NA* (08/19/2012:10:00) UA Leuk Est [Negative] Negative (08/19/2012:10:00) UA Nitrite [Negative] Negative (08/19/2012:10:) UA WBC [0-5 /HPF] <1 /HPF (08/19/2012:10:00) UA RBC [0-2 /HPF] <1 /HPF (08/19/2012:10:00) UA Sq Epi [Few /LPF] Occasional /LPF *NA* (08/19/2012:10:00) UA Mucus [None Seen /LPF] Few /LPF *NA* (08/19/2012:10:00) CHEMISTRY Most recent to oldest [Reference Range]: 1 Sodium Lvl [135-145 mEq/L] 142 mEq/L (08/19/2012:10:00) Potassium Lvl [3.5-5.1 mEq/L] 4.0 mEq/L (08/19/2012:10:00) Chloride Lvl [95-109 mEq/L] 108 mEq/L (08/19/2012:10:00) CO2 [24-32 mEq/L] 26 mEq/L (08/19/2012:10:00) AGAP [10.0-20.0 mEq/L] 12.0 mEq/L (08/19/2012:10:00) Creatinine Lvl [0.5-1.4 mg/dL] 0.8 mg/dL (08/19/2012:10:00) eGFR 89 mL/min/1.73m2 1 *NA* (08/19/2012:10:00) BUN [7-22 mg/dL] 10 mg/dL (08/19/2012 14:10:00) B/C Ratio [6-25] 12 (08/19/2012 14:10:00) Glucose Lvl [70-99 mg/dL] 86 mg/dL 2 (08/19/2012 14:10:00) Total Protein [6.4-8.4 g/dL] 6.6 g/dL (08/19/2012 14:10:00) Albumin Lvl [3.5-5.0 g/dL] 3.3 g/dL *LOW* (08/19/2012:10:00) Globulin [2.0-4.0 g/dL] 3.3 g/dL (08/19/2012:10:00) A/G Ratio [0.7-1.6] 1.0 (08/19/2012 14:10:00) Calcium Lvl [8.5-10.5 mg/dL] 8.6 mg/dL (08/19/2012 14:10:00) ALT [0-65 unit/L] 30 unit/L (08/19/2012:10:00) AST [0-37 unit/L] 13 unit/L (08/19/2012 14:10:00) Alk Phos [39-136 unit/L] 71 unit/L (08/19/2012 14:10:00) Bili Total [0.2-1.3 mg/dL] 0.3 mg/dL (08/19/2012 14:10:00) U Amph Scr [Negative] Negative *NA* (08/19/2012:10:00) U Diana Scr [Negative] Negative *NA* (08/19/2012 14:10:00) U Benzodia Scr [Negative] Positive *ABN* (08/19/2012 14:10:00) U Cocaine Scr [Negative] Negative *NA* (08/19/2012:10:00) U Opiate Scr [Negative] Negative *NA* (08/19/2012:10:00) U Phencyc Scr [Negative] Negative *NA* (08/19/2012 14:10:00) U Cannab Scr [Negative] Negative *NA* (08/19/2012 14:10:00) UDS Note See Note 3 (08/19/2012) Acetaminoph Lvl [10-20 ug/ml] <2 ug/ml *LOW* (08/19/2012) Salicylate Lvl [0.0-30.0 mg/dL] <1.7 mg/dL (08/19/2012) Etoh (%) <.003 % 4 *NA* (08/19/2012) Ethanol Lvl <3 mg/dL 5 *NA* (08/19/2012) U Preg [Negative] Negative (08/19/2012) 1Result Comment: The eGFR is calculated using the [...] from the National Kidney Disease Education Program ( NKDEP) which additionally recommends that when the eGFR is used in patients with extremes of body mass index for purposes of drug dosing, the eGFR should be mul tiplied by the estimated BMI. 2Interpretive Data: Adult reference range values reflect the clinical guidelines of the [place] [employer]. 3Interpretive Data: Drugs reported as positive have not [...] ng/mL Marijuana metabolites 50 ng/mL Methadone 300 ng/mL Urine alcohol 20 mg/dL 4Interpretive Data: Negative Range: <0.003% Toxic Range: >0.25% 5Interpretive Data: Negative Range: <3 mg/dL Toxic Range: >250 mg/dL HEMATOLOGY Most recent to oldest [Reference Range]: 1 WBC [3.7-10.4 K/CMM] 7.6 K/CMM (08/19/2012::) RBC [4.20-5.40 M/CMM] 4.43 M/CMM (08/19/2012) Hgb [12.0-16.0 g/dL] 12.7 g/dL (08/19/2012:) Hct [36.0-48.0 %] 38.0 % (08/19/2012) MCV [81.0-99.0 fL] 85.8 fL (08/19/2012:) MCH [27.0-31.0 pg] 28.7 pg (08/19/2012:) MCHC [32.0-36.0 g/dL] 33.5 g/dL (08/19/2012:) RDW [11.5-14.5 %] 13.8 % (08/19/2012:) Platelet [133-450 K/CMM] 233 K/CMM (08/19/2012::) MPV [7.4-10.4 fL] 7.8 fL (08/19/2012:) Segs [45.0-75.0 %] 69.3 % (08/19/2012:) Lymphocytes [20.0-40.0 %] 23.0 % (08/19/2012:) Monocytes [2.0-12.0 %] 6.3 % (08/19/2012:) Eosinophils [0.0-4.0 %] 1.2 % (08/19/2012:) Basophils [0.0-1.0 %] 0.2 % (08/19/2012 14:10:00) Segs-Bands # [1.5-8.1 K/CMM] 5.2 K/CMM (08/19/2012 14:10:00) Lymphocytes # [1.0-5.5 K/CMM] 1.7 K/CMM (08/19/2012 14:10:00) Monocytes # [0.0-0.8 K/CMM] 0.5 K/CMM (08/19/2012 14:10:00) Eosinophils # [0.0-0.5 K/CMM] 0.1 K/CMM (08/19/2012 14:10:00) Basophils # [0.0-0.2 K/CMM] 0.0 K/CMM (08/19/2012 14:10:00)
--- OUTSIDE RECORDS SUMMARY | 2019-07-02 23:32 | XMS REPORT ---
Author Author David Metz Organization [employer] Address Unknown Phone Unavailable Care Team Providers Care Supervisor Maintenance And Custodians Name Role Phone David Metz CP Unavailable Allergies, Adverse Reactions, Alerts Substance Reaction Event Type penicillin hives Drug Allergy Iodine difficulty breathing Drug Allergy wheat Info Not Available Non Drug Allergy Problems Problem Type Condition Code Onset Dates Condition Status Assessment Sore throat J02.9 Active Problem LGSIL (low grade squamous intraepithelial lesion) on Pap smear 796.9 Active Problem Vitamin D deficiency E55.9 Active Problem Other headache syndrome G44.89 Active Problem Anxiety state F41.1 Active Problem Other and unspecified hyperlipidemia E78.5 Active Problem Human papillomavirus A63.0 Active Problem Attention deficit disorder F90.0 Active Medications Medication Code System Code Instructions Start Date End Date Status Dosage Bromfed DM [facility] 74680605658 30-2-10 MG/5ML Orally every 4 hrs Jun 18, 2018 Jun 23, 2018 Active 10 ml as needed ZyrTEC NDC 0 10 MG Orally prn May 07, 2017 Active 1 tablet Flonase [facility] [address]-82 50 MCG/DOSE Nasally Once a day Active 1 spray in each nostril Zithromax Z-Jermain [facility] 53605152988 250 MG Orally Once a day Jun 18, 2018 Jun 23, 2018 Active 2 tablets on the first day, then 1 tablet daily for 4 days Adderall XR [facility] 88700450544 20 mg Orally Once a day Active 1 capsule Vital Signs Date/Time: Jun 18, 2018 BMI 31.83 Index Weight 163 lbs Height 60 in Cardiac Monitoring Heart Rate 100 /min Blood Pressure Diastolic 94 mm Hg Blood Pressure Systolic 130 mm Hg Results Name Result Date Reference Range Unit Abnormality Flag RAPID STREP Summary Purpose eClinicalWorks Submission
--- OUTSIDE RECORDS SUMMARY | 2019-07-02 23:32 | XMS REPORT ---
Author Author Maribel De Leon [facility] [employer] Address Unknown Phone Unavailable Care Team Providers Care Automobile Club Membership Sales Agent Name Role Phone Maribel De Leon CP Unavailable Allergies, Adverse Reactions, Alerts Substance Reaction Event Type penicillin hives Drug Allergy Iodine difficulty breathing Drug Allergy wheat Info Not Available Non Drug Allergy Problems Problem Type Condition Code Onset Dates Condition Status Assessment Achilles tendinitis of left lower extremity M76.62 Active Problem Allergic rhinitis, unspecified seasonality, unspecified trigger J30.9 Active Problem 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 Problem Vitamin D deficiency E55.9 Active Problem Human papillomavirus A63.0 Active Problem LGSIL (low grade squamous intraepithelial lesion) on Pap smear 796.9 Active Problem Other and unspecified hyperlipidemia E78.5 Active Problem Chronic sinusitis, unspecified location J32.9 Active Problem Attention deficit disorder F90.0 Active Problem Anxiety state F41.1 Active Medications Medication Code System Code Instructions Start Date End Date Status Dosage Excedrin Migraine ND 68350827953 250-250-65 MG Orally every 6 hrs Active 2 tablets as needed Imitrex NDC 77731094354 50 mg Orally 1 tablet PO QD, repeat in 1 hour if no improvement in symptoms Jul 01, 2018 Active 1 tablet as needed Adderall XR ND 49098362788 20 mg Orally Once a day Active 1 capsule ZyrTEC NDC 0 10 MG Orally prn May 07, 2017 Active 1 tablet Medrol (Jermain) NDC 0 4 MG Orally Aug 25, 2018 [place] [address]-16 50 MCG/DOSE Nasally Once a day Active 1 spray in each nostril Vital Signs Date/Time: Aug 25, 2018 BMI 32.03 Index Weight 164 lbs Height 60 in Cardiac Monitoring Heart Rate 70 /min Blood Pressure Diastolic 70 mm Hg Blood Pressure Systolic 120 mm Hg Results No Known Results Summary Purpose eClinicalWorks Submission
--- OUTSIDE RECORDS SUMMARY | 2019-07-02 23:32 | XMS REPORT | Summary of Care ---
Author Author [facility] Address Unknown Phone Unavailable Encounter HQ Jorge_stella(DOUG) [id number] Date(s): 06/29/15 - 07/28/15 [facility] Discharge Disposition: Home Attending Physician: Brannon Ramos Vital Signs No data available for this [...]
--- OUTSIDE RECORDS SUMMARY | 2019-07-02 23:32 | XMS REPORT ---
Author Author Codi Hernández [facility] [employer] Address Unknown Phone Unavailable Care Team Providers Care Vertical Lathe Operator Name Role Phone Codi Hernández CP Unavailable Allergies, Adverse Reactions, Alerts Substance Reaction Event Type penicillin hives Drug Allergy Iodine difficulty breathing Drug Allergy Encounters Encounter Location Date Follow-Up [facility] Jul 06, 2013 FOLLOW-UP [facility] Jul 16, 2013 Problems Problem Type Condition ICD-9 Code Onset Dates Condition Status Problem Hyperlipidemia 272.4 Active Assessment Chronic fatigue 780.79 Active Problem Anxiety 300.00 Active Assessment Chronic EBV infection 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 Status Jul 16, 2013 Where or with whom do you live ? . with self Jul 16, 2013 children . 2 Jul 16, 2013 Tobacco Use: . Are you a: never smoker Jul 16, 2013 Use of recreational / street drugs? . Answer: No Jul 16, 2013 Marital Status: single. Jul 16, 2013 Do you drink alcohol? . Status: Yes, Type: Wine, How often? 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
--- OUTSIDE RECORDS SUMMARY | 2019-07-02 23:32 | XMS REPORT | Summary of Care ---
Author Author [facility] Address Unknown Phone Unavailable Encounter HQ Jorge_stella(DOUG) [id number] Date(s): 05/29/16 - 06/27/16 [facility] Discharge Disposition: Home or Self Care Attending Physician: Brannon Ramos Vital Signs No [...]
--- OUTSIDE RECORDS SUMMARY | 2019-07-02 23:32 | XMS REPORT ---
Author Author Maribel De Leon Organization [employer] Address Unknown Phone Unavailable Care Team Providers Care Maintenance Clerk Name Role Phone Maribel De Leon CP Unavailable Allergies, Adverse Reactions, Alerts Substance Reaction Event Type penicillin hives Drug Allergy Iodine difficulty breathing Drug Allergy wheat Info Not Available Non Drug Allergy Problems Problem Type Condition Code Onset Dates Condition Status Assessment Other headache syndrome G44.89 Active Problem LGSIL (low grade squamous intraepithelial lesion) on Pap smear 796.9 Active Problem Vitamin D deficiency E55.9 Active Problem Other headache syndrome G44.89 Active Problem Anxiety state F41.1 Active Problem Other and unspecified hyperlipidemia E78.5 Active Problem Human papillomavirus A63.0 Active Problem Attention deficit disorder F90.0 Active Medications Medication Code System Code Instructions Start Date End Date Status Dosage ZyrTEC NDC 0 10 MG Orally prn May 07, 2017 Active 1 tablet Adderall XR [facility] 36314997643 20 mg Orally Once a day Active [address] [facility] [address]-32 50 MCG/DOSE Nasally Once a day Active 1 spray in each nostril Imitrex [facility] 02084899311 50 mg Orally 1 tablet PO QD, repeat in 1 hour if no improvement in symptoms Jul 01, 2018 Active 1 tablet as needed Excedrin Migraine [facility] 76394567326 250-250-65 MG Orally every 6 hrs Active 2 tablets as needed Vital Signs Date/Time: Jul 01, 2018 BMI 31.24 Index Weight 160 lbs Height 60 in Cardiac Monitoring Heart Rate 96 /min Blood Pressure Diastolic 100 mm Hg Blood Pressure Systolic 140 mm Hg Results Name Result Date Reference Range Unit Abnormality Flag TORADOL IM 15MG X4 Summary Purpose eClinicalWorks Submission
--- OUTSIDE RECORDS SUMMARY | 2019-07-02 23:32 | XMS REPORT ---
Author Author Codi Hernández [facility] eClinicalWorks Address Unknown Phone Unavailable Care Team Providers Care Menu Planner Name Role Phone Codi Hernández Unavailable Allergies, Adverse Reactions, Alerts Substance Reaction Event Type penicillin hives Drug Allergy Iodine difficulty breathing Drug Allergy Encounters Encounter Location Date Follow-Up [facility] Jul 06, 2013 Problems Problem Type Condition ICD-9 Code Onset Dates Condition Status Problem Hyperlipidemia 272.4 Active Assessment Pharyngitis 462 Active Problem Anxiety 300.00 Active Assessment Body aches 780.96 Active Medications Medication Code System Code Instructions Start Date End Date Status Dosage Clindamycin HCl [facility] [address]-04 300 MG Orally Four times a day Active 1 capsule Zoloft [facility] [address]-65 50 MG Orally Once a day Active 1 tablet Vyvanse [facility] [address]-78 20 MG Orally Once a day Active 1 capsule in the morning Social History Social History Element Qualifiers Date Reported Ethnicity . Status Jul 06, 2013 Where or with whom do you live ? . with self Jul 06, 2013 children . 2 Jul 06, 2013 Tobacco Use: . Are you a: never smoker Jul 06, 2013 Use of recreational / street drugs? . Answer: No Jul 06, 2013 Marital Status: single. Jul 06, 2013 Do you drink alcohol? . Status: Yes, Type: Wine, How often? 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 Jul 06, 2013 Family history Qualifier Description Comment Date Reported Father bladder cancer Jul 06, 2013 Mother hepatitis c, heart attack Jul 06, 2013 Children alive Comment not available Jul 06, 2013 Vital Signs Date/Time: Jul 06, 2013 Weight 159 lbs Height 60 inches Temperature 98.2 F Cardiac Monitoring Heart Rate 80 Beats per Minute Blood Pressure Diastolic 86 mm Hg Blood Pressure Systolic 122 mm Hg Results CBC Platelets(- ) 275 NEUTROPHILS(- ) MID-0.8,GRA-6.8 MCHC(- ) 32.1 MCH(- ) 28.2 MCV(- ) 88.0 WBC(- ) 9.7 RDW(- ) 13.5 RBC(- ) 4.85 Hemoglobin(- ) 13.7 Hematocrit(- ) 42.7 Summary Purpose eClinicalWorks Submission
--- OUTSIDE RECORDS SUMMARY | 2019-07-02 23:32 | XMS REPORT ---
Author Maribel Up [facility] eClinicalWorks Address Unknown Phone Unavailable Care Team Providers Care Beauty Parlor Cleaner Name Role Phone Maribel De Leon CP [...] Instructions Start Date End Date Status Dosage Medrol (Jermain) NDC 0 4 mg Orally as directed Aug 27, 2018 Active as directed Results No Known Results Summary Purpose eClinicalWorks Submission
--- OUTSIDE RECORDS SUMMARY | 2019-07-02 23:32 | XMS REPORT ---
Author Author Codi Hernández [facility] eClinicalWorks Address Unknown Phone Unavailable Care Team Providers Care Acid Mixer Name Role Phone Codi Hernández Unavailable Allergies, Adverse Reactions, Alerts Substance Reaction Event Type penicillin hives Drug Allergy Iodine difficulty breathing Drug Allergy Encounters Encounter Location Date Follow-Up [facility] Jul 06, 2013 FOLLOW-UP [facility] Jul 16, 2013 E[facility] Aug 03, 2013 Problems Problem Type Condition ICD-9 Code Onset Dates Condition Status Problem Anxiety 300.00 Active Problem Hyperlipidemia 272.4 Active Problem ADD (attention deficit disorder) 314.00 Active Assessment Otalgia 388.70 Active Assessment Flu vaccine need V04.81 Active Assessment Acute sinusitis 461.9 Active Assessment Serous otitis media 381.4 Active Medications Medication Code System Code Instructions Start Date End Date Status Dosage Vyvanse [facility] [address]-50 20 MG Orally Once a day Active 1 capsule in the morning Dallergy [facility] [address]-58 25-10 MG Orally every six to eight hours PRN Aug 03, 2013 Aug 13, 2013 Active as directed Zoloft [facility] [address]-03 50 MG Orally Once a day Active 1 tablet A/B Otic [facility] [address]-95 5.4-1.4 % Otic Three times a day Aug 03, 2013 Aug 13, 2013 Active 1 drop affected ear canal into affected ear Levaquin [facility] [address]-93 500 mg Orally Once a day Aug 03, 2013 Aug 10, 2013 Active 1 tablet Social History Social History Element Qualifiers Date Reported Ethnicity . Status Aug 03, 2013 Where or with whom do you live ? . with self Aug 03, 2013 children . 2 Aug 03, 2013 Tobacco Use: . Are you a: never smoker Aug 03, 2013 Use of recreational / street drugs? . Answer: No Aug 03, 2013 Marital Status: single. Aug 03, 2013 Do you drink alcohol? . Status: Yes, Type: Wine, How often? 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
--- OUTSIDE RECORDS SUMMARY | 2019-07-02 23:32 | XMS REPORT ---
Author Author Eleni Zapata Organization [employer] Address Unknown Phone Unavailable Care Team Providers Care Retail Commission Sales Associate Name Role Phone Eleni Zapata Unavailable Allergies, Adverse Reactions, Alerts Substance Reaction Event Type penicillin hives Drug Allergy Iodine difficulty breathing Drug Allergy Problems Problem Type Condition Code Onset Dates Condition Status Assessment Acute upper respiratory infection, unspecified J06.9 Active Assessment Cough R05 Active Assessment Sore throat J02.9 Active Problem Vitamin D deficiency E55.9 Active Problem LGSIL (low grade squamous intraepithelial lesion) on Pap smear 796.9 Active Problem Other headache syndrome G44.89 Active Problem Anxiety state F41.1 Active Problem Other and unspecified hyperlipidemia E78.5 Active Problem Human papillomavirus A63.0 Active Problem Attention deficit disorder F90.0 Active Medications Medication Code System Code Instructions Start Date End Date Status Dosage ProAir HFA [facility] [address]-47 108 (90 Base) MCG/ACT Inhalation every 4 hrs Active 2 puffs as needed Adderall XR [facility] [address]-43 20 MG Orally Once a day Active 1 capsule in the morning Zithromax Z-Jermain [facility] [address]-99 250 MG Orally Once a day March 19, 2017 March 24, 2017 Active 2 tablets on the first day, then 1 tablet daily for 4 days Vital Signs Date/Time: March 19, 2017 BMI 31.44 Index Weight 161 lbs Height 60 in Temperature 98.1 F Cardiac Monitoring Heart Rate 84 /min Blood Pressure Diastolic 72 mm Hg Blood Pressure Systolic 124 mm Hg Results Name Result Date Reference Range Unit Abnormality Flag PULSE OXIMETRY RAPID STREP ----Negative negative [id number] DECADRON 1MGx4 CBC ----MCHC 34.6 [id number] ----MCH 30.3 [id number] ----Platelets 174 [id number] ----RDW 11.7 [id number] ----NEUTROPHILS mid-0.4,gra-4.3 [id number] ----Hematocrit 44.8 [id number] ----MCV 87.7 20170320 ----RBC 5.11 [id number] ----Hemoglobin 15.5 20170320 ----WBC 5.6 [id number] Summary Purpose eClinicalWorks Submission
--- OUTSIDE RECORDS SUMMARY | 2019-07-02 23:32 | XMS REPORT ---
Author Author Jennifer Barraza [facility] eClinical[employer] Address Unknown Phone Unavailable Care Team Providers Care Legal Department Manager Name Role Phone Jennifer Barraza Unavailable Allergies, Adverse Reactions, Alerts Substance Reaction Event Type penicillin hives Drug Allergy Iodine difficulty breathing Drug Allergy Problems Problem Type Condition Code Onset Dates Condition Status Assessment Acute URI J06.9 Active Assessment Cough R05 Active Problem Vitamin D deficiency E55.9 Active Problem LGSIL (low grade squamous intraepithelial lesion) on Pap smear 796.9 Active Problem Other headache syndrome G44.89 Active Problem Anxiety state F41.1 Active Problem Other and unspecified hyperlipidemia E78.5 Active Problem Human papillomavirus A63.0 Active Problem Attention deficit disorder F90.0 Active Medications Medication Code System Code Instructions Start Date End Date Status Dosage Breo Ellipta [facility] [address]-29 200-25 MCG/INH Inhalation Once a day Active 1 puff ProAir HFA [facility] [address]-17 108 (90 Base) MCG/ACT Inhalation every 4 hrs Active 2 puffs as needed Adderall XR [facility] [address]-35 20 MG Orally Once a day Active 1 capsule in the morning Bromfed DM [facility] [address]-00 30-2-10 MG/5ML Orally every 6 hrs May 07, 2017 May 14, 2017 Active 10 ml as needed ZyrTEC NDC 0 5 MG Orally Once a day May 07, 2017 Active 1 tablet Vital Signs Date/Time: May 07, 2017 BMI 31.05 Index Weight 159 lbs Height 60 in Temperature 98.2 F Cardiac Monitoring Heart Rate 63 /min Blood Pressure Diastolic 92 mm Hg Blood Pressure Systolic 124 mm Hg Results Name Result Date Reference Range Unit Abnormality Flag CBC ----Platelets 252 [id number] ----NEUTROPHILS MID-0.6,GRA-2.5 [id number] ----MCHC 32.4 [id number] ----MCH 28.7 [id number] ----MCV 88.6 50262168 ----RDW 13.5 20170507 ----WBC 4.4L 20170507 ----Neutrophils (Absolute) MID-13.0H 20170507 ----RBC 5.36 20170507 ----Hemoglobin 15.4 20170507 ----Hematocrit 47.5 20170507 Summary Purpose eClinicalWorks Submission
--- OUTSIDE RECORDS SUMMARY | 2019-07-02 23:32 | XMS REPORT | Summary of Care ---
Author Author [facility] Address Unknown Phone Unavailable Encounter HQ Jorge_stella(DOUG) [id number] Date(s): 07/02/16 - 07/31/16 [facility] Discharge Disposition: Home or Self Care Attending [...]
--- OUTSIDE RECORDS SUMMARY | 2019-07-02 23:32 | XMS REPORT ---
Author Author Codi Hernández [facility] e[employer] Address Unknown Phone Unavailable Care Team Providers Care Slot Floor Person Name Role Phone Codi Hernández Unavailable Allergies, Adverse Reactions, Alerts Substance Reaction Event Type penicillin hives Drug Allergy Iodine difficulty breathing Drug Allergy Encounters Encounter Location Date FEVER [facility] Jun 24, 2013 std check [facility] Aug 24, 2013 Follow-Up [facility] Jul 06, 2013 FOLLOW-UP [facility] Jul 16, 2013 EAR [facility] Aug 03, 2013 Problems Problem Type Condition ICD-9 Code Onset Dates Condition Status Problem Anxiety 300.00 Active Problem Hyperlipidemia 272.4 Active Problem ADD (attention deficit disorder) 314.00 Active Assessment Genital warts 078.11 Active Assessment Screening for STD (sexually transmitted disease) V74.5 Active Medications Medication Code System Code Instructions Start Date End Date Status Dosage Vyvanse [facility] [address]-22 20 MG Orally Once a day Active 1 capsule in the morning Zoloft [facility] [address]-92 50 MG Orally Once a day Active 1 tablet Podofilox [facility] [address]-83 0.5 % Externally Twice a day for 3 days, then 4 days of no treatment, may repeat for up to 4 cycles Aug 24, 2013 Nov 22, 2013 Active 1 application to affected area Dallergy [facility] [address]-02 25-10 MG Orally every six to eight hours PRN Aug 03, 2013 Aug 13, 2013 Active as directed Social History Social History Element Qualifiers Date Reported Ethnicity . Status Aug 24, 2013 Where or with whom do you live ? . with self Aug 24, 2013 children . 2 Aug 24, 2013 Tobacco Use: . Are you a: never smoker Aug 24, 2013 Use of recreational / street drugs? . Answer: No Aug 24, 2013 Marital Status: single. Aug 24, 2013 Do you drink alcohol? . Status: Yes, Type: Wine, How often? 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
--- OUTSIDE RECORDS SUMMARY | 2019-07-02 23:32 | XMS REPORT ---
Author Author Codi Hernández [facility] eClinical[employer] Address Unknown Phone Unavailable Care Team Providers Care Auto Dealership Porter Name Role Phone Codi Hernández CP Unavailable Allergies, Adverse Reactions, Alerts Substance Reaction Event Type penicillin hives Drug Allergy Iodine difficulty breathing Drug Allergy Encounters Encounter Location Date FEVER [facility] Jun 24, 2013 std check [facility] Aug 24, 2013 WWE [facility] Sep 14, 2013 follow-up [facility] Sep 23, 2013 Follow-Up [facility] Jul 06, 2013 FOLLOW-UP [facility] Jul 16, 2013 EAR [facility] Aug 03, 2013 Problems Problem Type Condition ICD-9 Code Onset Dates Condition Status Assessment HPV (human papilloma virus) infection 079.4 Active Assessment Vitamin d deficiency 268.9 Active Problem Vitamin d deficiency 268.9 Active Problem HPV (human papilloma virus) infection 079.4 Active Problem LGSIL (low grade squamous intraepithelial lesion) on Pap smear 796.9 Active Problem Hyperlipidemia 272.4 Active Assessment LGSIL (low grade squamous intraepithelial lesion) on Pap smear 796.9 Active Problem ADD (attention deficit disorder) 314.00 Active Problem Anxiety 300.00 Active Medications Medication Code System Code Instructions Start Date End Date Status Dosage Zoloft [facility] [address]-44 50 MG Orally Once a day Active 1 tablet Vyvanse [facility] [address]-26 20 MG Orally Once a day Active 1 capsule in the morning Vitamin D (Ergocalciferol) [facility] [address]-33 [address] [address] Orally weekly Sep 23, 2013 March 22, 2014 Active 1 capsule Podofilox [facility] [address]-23 0.5 % Externally Twice a day for 3 days, then 4 days of no treatment, may repeat for up to 4 cycles Aug 24, 2013 March 13, 2014 Active 1 application to affected area Social History Social History Element Qualifiers Date Reported Ethnicity . Status Sep 23, 2013 Where or with whom do you live ? . with self Sep 23, 2013 children . 2 Sep 23, 2013 Tobacco Use: . Are you a: never smoker Sep 23, 2013 Use of recreational / street drugs? . Answer: No Sep 23, 2013 Marital Status: single. Sep 23, 2013 Do you drink alcohol? . Status: Yes, Type: Wine, How often? 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
--- OUTSIDE RECORDS SUMMARY | 2019-07-02 23:32 | XMS REPORT | Summary of Care ---
Author Author [facility] Organization [facility] Address Unknown Phone Unavailable Encounter MIRTHA Joyner(FIN) [id number] Date(s): 06/26/18 - 06/26/18 [facility] [address] [place] [address]- Encounter Diagnosis Migraine, unspecified, not intractable, without status migrainosus (Final) - 07/07/18 Morbid (severe) obesity due to excess calories (Final) - Body mass index (BMI) 30.0-30.9, adult (Final) - Discharge Disposition: Home or Self Care Attending Physician: Eduardo Arnett MD Admitting Physician: Eduardo Arnett MD Vital Signs 1 2 3 Most recent to oldest [Reference Range]: 154.94 cm (06/26/18 3:47 AM) Height 98.4 DegF (06/26/18 3:41 PM) 98.0 DegF (06/26/18 11:20 AM) 98.2 DegF (06/26/18 7:17 AM) Temperature Oral [96.4-99.1 DegF] 165/95 mmHg *HI* (06/26/18 3:41 PM) 132/86 mmHg (06/26/18 11:20 AM) 133/80 mmHg (06/26/18 7:17 AM) Blood Pressure [90-140/60-90 mmHg] 17 BRMIN (06/26/18 3:41 PM) 17 BRMIN (06/26/18 11:20 AM) 17 BRMIN (06/26/18 7:17 AM) Respiratory Rate [14-20 BRMIN] 71 bpm (06/26/18 3:41 PM) 65 bpm (06/26/18 11:20 AM) 64 bpm (06/26/18 7:17 AM) Peripheral Pulse Rate [60-100 bpm] 72.727 kg (06/26/18 3:47 AM) Weight 30.29 m2 (06/26/18 3:47 AM) Body Mass Index Problem List No data available for this section Allergies, Adverse Reactions, Alerts Substance Reaction Severity Status penicillins Active iodine Active Medications acetaminophen 650 mg, 2 tab, Route: PO, Drug form: TAB, Q4H, Dosing Weight 72.727, kg, PRN Court n 1-3/Temp > 100.4 F, Start date: 06/26/18 4:33:00 CDT, Duration: 30 day, Stop date: 07/26/18 4:32:00 CDT Notes: Do not exceed 4 gm/day. (Same as: Tylenol) Start Date: 06/26/18 Stop Date: 06/26/18 Status: Discontinued acetaminophen-hydrocodone 325 mg-5 mg oral tablet 1 tab, Route: PO, Drug Form: TAB, Dosing Weight 72.727, kg, Q4H, PRN Pain Score 4-6, Start date: 06/26/18 4:33:00 CDT, Duration: 30 day, Stop date: 07/26/18 4:3 2:00 CDT Notes: (Same as: [place] 325/5) Do not exceed 4gm/day of acetaminophen. Start Date: 06/26/18 Stop Date: 06/26/18 Status: Discontinued Bystolic 10 mg, 1 tab, Route: PO, Drug form: TAB, Daily, Dosing Weight 72.727, kg, Start date: 06/27/18 9:00:00 CDT, Duration: 30 day, Stop date: 07/26/18 9:00:00 CDT Notes: (same as: Bystolic) Start Date: 06/27/18 Stop Date: 06/26/18 Status: Canceled Imitrex 50 mg, 2 tab, Route: PO, Drug form: TAB, Q2H, Dosing Weight 72.727, kg, PRN Head ache 4-6, Priority: STAT, Start date: 06/26/18 8:09:00 CDT, Duration: 30 day, St op date: 07/26/18 8:08:00 CDT Notes: (Same As: Imitrex) Start Date: 06/26/18 Stop Date: 06/26/18 Status: Discontinued methylPREDNISolone SODium SUCCinate 250 mg + Dextrose 5% in Water IV 100 mL Route: IVPB, Drug form: INJ, ONCE, Dosing Weight 72.727, kg, Priority: STAT, Sta rt date: 06/26/18 14:36:00 CDT, Stop date: 06/26/18 14:36:00 CDT Notes: (Same as:Solu-MEDROL, A-Methapred) MEDICATION WASTE Product Size: 500 mgProduct Wasted: ___ mg Start Date: 06/26/18 Stop Date: 06/26/18 Status: Completed ondansetron 4 mg, 2 mL, Route: IVP, Drug form: INJ, Q6H, Dosing Weight 72.727, kg, PRN Nause a & Vomiting, Start date: 06/26/18 4:33:00 CDT, Duration: 30 day, Stop date: 07/26/18 4:32:00 CDT Notes: (Same as: Carm[place]) MEDICATION WASTE Product Size: 4 mgProduct Was tracee: ___ mg Start Date: 06/26/18 Stop Date: 06/26/18 Status: Discontinued sertraline 50 mg, 1 tab, Route: PO, Drug form: TAB, Daily, Dosing Weight 72.727, kg, Start date: 06/27/18 9:00:00 CDT, Duration: 30 day, Stop date: 07/26/18 9:00:00 CDT Notes: (Same as: Zoloft) Start Date: 06/27/18 Stop Date: 06/26/18 Status: Canceled Singulair 10 mg, 1 tab, Route: PO, Drug form: TAB, QPM, Dosing Weight 72.727, kg, Start da te: 06/27/18 17:00:00 CDT, Duration: 30 day, Stop date: 07/26/18 17:00:00 CDT Notes: (Same as:Singulair) Start Date: 06/27/18 Stop Date: 06/26/18 Status: Canceled Results ELECTROLYTES Most recent to 1 oldest [Reference Range]: Sodium Lvl [135-145 146 mEq/L mEq/L] *HI* (06/26/18 4:44 AM) Potassium Lvl 4.0 mEq/L [3.5-5.1 mEq/L] (06/26/18 4:44 AM) Chloride Lvl [95-109 109 mEq/L mEq/L] (06/26/18 4:44 AM) CO2 [24-32 mEq/L] 29 mEq/L (06/26/18 4:44 AM) AGAP [10.0-20.0 12.0 mEq/L mEq/L] (06/26/18 4:44 AM) CHEM PANEL Most recent to 1 oldest [Reference Range]: Creatinine Lvl 0.70 mg/dL [0.50-1.40 mg/dL] (06/26/18 4:44 AM) eGFR 101 mL/min/1.73m2 1 *NA* (06/26/18 4:44 AM) BUN [7-22 mg/dL] 13 mg/dL (06/26/18 4:44 AM) B/C Ratio [6-25] 19 (06/26/18 4:44 AM) Glucose Lvl [70-99 110 mg/dL mg/dL] *HI* (06/26/18 4:44 AM) Total Protein 6.5 g/dL [6.4-8.4 g/dL] (06/26/18 4:44 AM) Albumin Lvl [3.5-5.0 3.2 g/dL g/dL] *LOW* (06/26/18 4:44 AM) Globulin [2.7-4.2 3.3 g/dL g/dL] (06/26/18 4:44 AM) A/G Ratio [0.7-1.6] 1.0 (06/26/18 4:44 AM) Calcium Lvl 8.3 mg/dL [8.5-10.5 mg/dL] *LOW* (06/26/18 4:44 AM) Magnesium Lvl 2.3 mg/dL [1.8-2.4 mg/dL] (06/26/18 4:44 AM) ALT [0-65 unit/L] 76 unit/L *HI* (06/26/18 4:44 AM) AST [0-37 unit/L] 113 unit/L *HI* (06/26/18 4:44 AM) Alk Phos [39-136 102 unit/L unit/L] (06/26/18 4:44 AM) Bili Total [0.2-1.3 0.3 mg/dL mg/dL] (06/26/18 4:44 AM) 1Result Comment: The eGFR is calculated using [...] be mul tiplied by the estimated BMI. HEMATOLOGY Most recent to 1 oldest [Reference Range]: WBC [3.7-10.4 K/CMM] 8.0 K/CMM (06/26/18 4:44 AM) RBC [4.20-5.40 4.41 M/CMM M/CMM] (06/26/18 4:44 AM) Hgb [12.0-16.0 g/dL] 12.6 g/dL (06/26/18 4:44 AM) Hct [36.0-48.0 %] 36.9 % (06/26/18 4:44 AM) MCV [80.0-98.0 fL] 83.8 fL (06/26/18 4:44 AM) MCH [27.0-31.0 pg] 28.7 pg (06/26/18 4:44 AM) MCHC [32.0-36.0 34.2 g/dL g/dL] (06/26/18 4:44 AM) RDW [11.5-14.5 %] 13.0 % (06/26/18 4:44 AM) MPV [7.4-10.4 fL] 7.1 fL *LOW* (06/26/18 4:44 AM) Platelet [133-450 226 K/CMM K/CMM] (06/26/18 4:44 AM) Segs [45.0-75.0 %] 63.4 % (06/26/18 4:44 AM) Lymphocytes 25.8 % [20.0-40.0 %] (06/26/18 4:44 AM) Monocytes [2.0-12.0 9.2 % %] (06/26/18 4:44 AM) Eosinophils [0.0-4.0 0.9 % %] (06/26/18 4:44 AM) Basophils [0.0-1.0 0.7 % %] (06/26/18 4:44 AM) Neutrophils # 5.1 K/CMM [1.5-8.1 K/CMM] (06/26/18 4:44 AM) Lymphocytes # 2.1 K/CMM [1.0-5.5 K/CMM] (06/26/18 4:44 AM) Monocytes # [0.0-0.8 0.7 K/CMM K/CMM] (06/26/18 4:44 AM) Eosinophils # 0.1 K/CMM [0.0-0.5 K/CMM] (06/26/18 4:44 AM) Basophils # [0.0-0.2 0.1 K/CMM K/CMM] (06/26/18 4:44 AM) Immunizations No data available for this section Procedures Procedure Date Related Diagnosis Body Site Status Admission to hand surgery department Completed Breast reduction Completed section Completed Laparoscopic cholecystectomy Completed Tubal ligation Completed Social History Social History Type Response Alcohol [...] Smoking Cessation Counseling No entered on: 06/26/18 Assessment and Plan Extracted from: Title: Discharge Summary * Author: Gaurang Mayorga MD Date: 06/26/18 Discharge Information Disposition to home Condition stable Medications: See med reconciliation form Diet: Heart healthy Discharge Plan In the event of any worsening symptoms patient was to come back to the ED for further evaluation Discharge summary to greater than 35 minutes Extracted from: Title: Neurology Consult Note Author: Evy Garcia MD [...]
--- OUTSIDE RECORDS SUMMARY | 2019-07-02 23:32 | XMS REPORT | Summary of Care ---
Author Author [facility] Address Unknown Phone Unavailable Encounter HQ Jorge_stella(DOUG) [id number] Date(s): 08/01/15 - 08/09/15 [facility] Discharge Disposition: Home Attending Physician: Brannon Ramos [...]
--- OUTSIDE RECORDS SUMMARY | 2019-07-02 23:32 | XMS REPORT ---
Author Author Maribel De Leon Organization eClinicalWorks Address Unknown Phone Unavailable Care Team Providers Care Gardening Supervisor Name Role Phone Maribel De Leon CP Unavailable Allergies No Known Allergies Problems Problem Type Condition Code Onset Dates Condition Status Assessment Nasal turbinate hypertrophy J34.3 Active Assessment Acute recurrent maxillary sinusitis J01.01 Active Assessment Nasal septal deviation J34.2 Active Problem LGSIL (low grade squamous intraepithelial lesion) on Pap smear 796.9 Active Problem Vitamin D deficiency E55.9 Active Problem Other headache syndrome G44.89 Active Problem Anxiety state F41.1 Active Problem Other and unspecified hyperlipidemia E78.5 Active Problem Human papillomavirus A63.0 Active Problem Attention deficit disorder F90.0 Active Medications Medication Code System Code Instructions Start Date End Date Status Dosage Cipro [facility] 14616942173 500 mg Orally twice a day (bid) April 09, 2018 April 19, 2018 Active 1 tablet Results No Known Results Summary Purpose eClinicalWorks Submission
--- OUTSIDE RECORDS SUMMARY | 2019-07-02 23:32 | XMS REPORT ---
Author Author Maribel De Leon [facility] eClinicalWorks Address Unknown Phone Unavailable Care Team Providers Care Rac Specialist Name Role Phone Maribel De Leon CP Unavailable Allergies, Adverse Reactions, Alerts Substance Reaction Event Type penicillin hives Drug Allergy Iodine difficulty breathing Drug Allergy wheat Info Not Available Non Drug Allergy Problems Problem Type Condition Code Onset Dates Condition Status Assessment Cough R05 Active Assessment Sinus pressure J34.89 Active Problem LGSIL (low grade squamous intraepithelial lesion) on Pap smear 796.9 Active Problem Vitamin D deficiency E55.9 Active Problem Other headache syndrome G44.89 Active Problem Anxiety state F41.1 Active Problem Other and unspecified hyperlipidemia E78.5 Active Problem Human papillomavirus A63.0 Active Problem Attention deficit disorder F90.0 Active Medications Medication Code System Code Instructions Start Date End Date Status Dosage Breo Ellipta [facility] 97848174362 200-25 MCG/INH Inhalation prn Active 1 puff ProAir HFA [facility] 70706559632 108 (90 Base) MCG/ACT Inhalation every 4 hrs Active 2 puffs as needed ZyrTEC ND 0 10 MG Orally prn May 07, 2017 Active 1 tablet Flonase [facility] [address]-44 50 MCG/DOSE Nasally Once a day Active 1 spray in each nostril Adderall XR [facility] 15193244497 20 mg Orally Once a day Active 1 capsule Benzonatate [facility] 84342510618 200 MG Orally Q8 PRN April 07, 2018 April 14, 2018 Active 1 capsule Vital Signs Date/Time: April 07, 2018 BMI 32.22 Index Weight 165 lbs Height 60 in Cardiac Monitoring Heart Rate 76 /min Blood Pressure Diastolic 70 mm Hg Blood Pressure Systolic 120 mm Hg Results Name Result Date Reference Range Unit Abnormality Flag CT Scan : Sinuses CBC ----Platelets 219 [id number] ----NEUTROPHILS mid-0.6,gra-4.2 [id number] ----MCHC 31.9 [id number] ----MCH 27.3 [id number] ----MCV 85.5 20180407 ----WBC 6.2 20180407 ----RDW 12.8 20180407 ----RBC 4.76 20180407 ----Hemoglobin 13.0 20180407 ----Hematocrit 40.7 [id number] Chest 2 views- Xray Summary Purpose eClinicalWorks Submission
--- OUTSIDE RECORDS SUMMARY | 2019-07-02 23:32 | XMS REPORT ---
Author Author David Metz Organization [employer] Address Unknown Phone Unavailable Care Team Providers Care Special Education Teaching Assistant Name Role Phone David Metz CP Unavailable Allergies, Adverse Reactions, Alerts Substance Reaction Event Type penicillin hives Drug Allergy Iodine difficulty breathing Drug Allergy Encounters Encounter Location Date FEVER [facility] Jun 24, 2013 std check [facility] Aug 24, 2013 Follow-Up [facility] Jul 06, 2013 FOLLOW-UP [facility] Jul 16, 2013 EAR [facility] Aug 03, 2013 Problems Problem Type Condition ICD-9 Code Onset Dates Condition Status Problem Hyperlipidemia 272.4 Active Assessment Pharyngitis 462 Active Problem Anxiety 300.00 Active Medications Medication Code System Code Instructions Start Date End Date Status Dosage Vyvanse [facility] [address]-62 20 MG Orally Once a day Active 1 capsule in the morning Zoloft [facility] [address]-03 50 MG Orally Once a day Active 1 tablet Zithromax Z-Jermain [facility] [address]-40 250 MG Orally Once a day Jun 24, 2013 Jun 29, 2013 Active 2 tablets on the first day, then 1 tablet daily for 4 days Social History Social History Element Qualifiers Date Reported Ethnicity . Status Jun 24, 2013 Where or with whom do you live ? . with self Jun 24, 2013 children . 2 Jun 24, 2013 Tobacco Use: . Are you a: never smoker Jun 24, 2013 Use of recreational / street drugs? . Answer: No Jun 24, 2013 Marital Status: single. Jun 24, 2013 Do you drink alcohol? . Status: Yes, Type: Wine, How often? 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
--- OUTSIDE RECORDS SUMMARY | 2019-07-02 23:33 | XMS REPORT ---
Author Author Codi Hernández [facility] eClinicalWorks Address Unknown Phone Unavailable Care Team Providers Care Pre K Teacher Name Role Phone Codi Hernández CP Unavailable Allergies, Adverse Reactions, Alerts Substance Reaction Event Type penicillin hives Drug Allergy Iodine difficulty breathing Drug Allergy Encounters Encounter Location Date FEVER [facility] Jun 24, 2013 std check [facility] Aug 24, 2013 WWE [facility] Sep 14, 2013 follow-up [facility] Sep 23, 2013 Follow-Up [facility] Jul 06, 2013 FOLLOW-UP [facility] Jul 16, 2013 EAR [facility] Aug 03, 2013 FEVER/EAR [facility] Oct 27, 2013 ear aches [facility] January 13, 2014 Problems Problem Type Condition ICD-9 Code Onset Dates Condition Status Assessment Serous otitis media 381.4 Active Assessment Motion sickness 994.6 Active Problem Vitamin d deficiency 268.9 Active Problem HPV (human papilloma virus) infection 079.4 Active Problem LGSIL (low grade squamous intraepithelial lesion) on Pap smear 796.9 Active Problem Hyperlipidemia 272.4 Active Assessment Acute sinusitis 461.9 Active Problem ADD (attention deficit disorder) 314.00 Active Problem Anxiety 300.00 Active Medications Medication Code System Code Instructions Start Date End Date Status Dosage Scopolamine Base [facility] [address]-15 1.5 MG Transdermal apply one patch every 3 days as needed January 13, 2014 February 12, 2014 Active as directed Dallergy [facility] [address]-02 25-10 MG Orally every six to eight hours as needed January 13, 2014 February 10, 2014 Active 1 tablet Levaquin [facility] [address]-53 500 mg Orally Once a day January 13, 2014 January 20, 2014 Active 1 tablet Vyvanse [facility] [address]-09 20 MG Orally Once a day Active 1 capsule in the morning Vitamin D (Ergocalciferol) [facility] [place] [address]-56 50310 UNIT Orally weekly Sep 23, 2013 March 22, 2014 Active 1 capsule Nasonex [facility] [place] [address]-40 50 MCG/ACT Nasally Once a day January 13, 2014 Active 2 sprays in each nostril Mucinex [facility] [place] [address]-83 600 MG Orally every 12 hrs Active 1 tablet as needed Advil [facility] [address]-85 200 MG Orally every 6 hrs Active 1 tablet as needed Zoloft [facility] [place] [address]-89 50 MG Orally Once a day Active 1 tablet Social History Social History Element Qualifiers Date Reported Ethnicity . Status January 13, 2014 Where or with whom do you live ? . with self January 13, 2014 children . 2 January 13, 2014 Tobacco Use: . Are you a: never smoker January 13, 2014 Use of recreational / street drugs? . Answer: No January 13, 2014 Marital Status: single. January 13, 2014 Do you drink alcohol? . Status: Yes, Type: Wine, How often? 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
--- OUTSIDE RECORDS SUMMARY | 2019-07-02 23:33 | XMS REPORT ---
Author Author Codi Hernández [facility] eClinicalWorks Address Unknown Phone Unavailable Care Team Providers Care Splunk Dashboard Developer Name Role Phone Codi Hernández Unavailable Encounters Encounter Location Date FEVER [facility] Jun 24, 2013 std check [facility] Aug 24, 2013 WWE [facility] Sep 14, 2013 follow-up [facility] Sep 23, 2013 Follow-Up [facility] Jul 06, 2013 FOLLOW-UP [facility] Jul 16, 2013 EAR [facility] Aug 03, 2013 medication change [facility] January 19, 2014 FEVER/EAR [facility] Oct 27, 2013 ear aches [facility] January 13, 2014 Problems Problem Type Condition ICD-9 Code Onset Dates Condition Status Problem Vitamin d deficiency 268.9 Active Problem HPV (human papilloma virus) infection 079.4 Active Problem LGSIL (low grade squamous intraepithelial lesion) on Pap smear 796.9 Active Problem Hyperlipidemia 272.4 Active Problem ADD (attention deficit disorder) 314.00 Active Problem Anxiety 300.00 Active Medications Medication Code System Code Instructions Start Date End Date Status Dosage Dallergy [facility] [address]-20 25-10 MG Orally every six to eight hours as needed January 13, 2014 February 10, 2014 Inactive 1 tablet Xyzal [facility] [address]-36 5 MG Orally Once a day January 19, 2014 May 19, 2014 Active 1 tablet in the evening Social History Social History Element Qualifiers Date [...] often? 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
--- OUTSIDE RECORDS SUMMARY | 2019-07-02 23:33 | XMS REPORT ---
Author Author Codi Hernández [facility] eClinicalWorks Address Unknown Phone Unavailable Care Team Providers Care Cart Attendant Name Role Phone Codi Hernández CP Unavailable Allergies, Adverse Reactions, Alerts Substance Reaction Event Type penicillin hives Drug Allergy Iodine difficulty breathing Drug Allergy Encounters Encounter Location Date FEVER [facility] Jun 24, 2013 std check [facility] Aug 24, 2013 WWE [facility] Sep 14, 2013 Follow-Up [facility] Jul 06, 2013 FOLLOW-UP [facility] Jul 16, 2013 EAR [facility] Aug 03, 2013 Problems Problem Type Condition ICD-9 Code Onset Dates Condition Status Problem ADD (attention deficit disorder) 314.00 Active Problem Anxiety 300.00 Active Problem HPV (human papilloma virus) infection 079.4 Active Assessment HPV (human papilloma virus) infection 079.4 Active Problem Hyperlipidemia 272.4 Active Assessment Routine gynecological examination V72.31 Active Medications Medication Code System Code Instructions Start Date End Date Status Dosage Vyvanse [facility] [address]-12 20 MG Orally Once a day Active 1 capsule in the morning Podofilox [facility] [address]-76 0.5 % Externally Twice a day for 3 days, then 4 days of no treatment, may repeat for up to 4 cycles Aug 24, 2013 March 13, 2014 Active 1 application to affected area Zoloft [facility] [address]-34 50 MG Orally Once a day Active 1 tablet Social History Social History Element Qualifiers Date Reported Ethnicity . Status Sep 14, 2013 Where or with whom do you live ? . with self Sep 14, 2013 children . 2 Sep 14, 2013 Tobacco Use: . Are you a: never smoker Sep 14, 2013 Use of recreational / street drugs? . Answer: No Sep 14, 2013 Marital Status: single. Sep 14, 2013 Do you drink alcohol? . Status: Yes, Type: Wine, How often? 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 Metabolic Panel (14) Pap IG, HPV-h+lr Lipid Panel Summary Purpose eClinicalWorks Submission
--- OUTSIDE RECORDS SUMMARY | 2019-07-02 23:33 | XMS REPORT ---
Author Author Eleni Zapata [facility] eClinicalWorks Address Unknown Phone Unavailable Care Team Providers Care Street Light Repairer Name Role Phone Eleni Zapata CP Unavailable Allergies, Adverse Reactions, Alerts Substance Reaction Event Type penicillin hives Drug Allergy Iodine difficulty breathing Drug Allergy Encounters Encounter Location Date medication change [facility] January 19, 2014 left ankle pain [facility] June 06, 2015 sick [facility] Oct 24, 2015 sinus [facility] April 18, 2015 LEFT ANKLE PAIN (STILL HAVING PAIN) [facility] May 02, 2015 COUGH/SORE THROAT [facility] February 13, 2015 LEFT ANKLE PAIN [facility] March 20, 2015 sinus,ears [facility] March 16, 2014 RIGHT FOOT PAIN [facility] January 17, 2015 Cough, congestion, sore throat [facility] January 18, 2016 FEVER [facility] Jun 24, 2013 std check [facility] Aug 24, 2013 WWE [facility] Sep 14, 2013 follow-up [facility] Sep 23, 2013 Follow-Up [facility] Jul 06, 2013 FOLLOW-UP [facility] Jul 16, 2013 EAR [facility] Aug 03, 2013 RASH ON RIGHT LEG [facility] April 12, 2016 Coughing, congestion, sore throat [facility] March 13, 2016 FEVER/EAR [facility] Oct 27, 2013 ear aches [facility] January 13, 2014 PAIN ON THE RIGHT LEG [facility] April 24, 2016 Unknown [facility] May 08, 2016 HEADACHES AND BP ISSUES [facility] Sep 03, 2016 congestion [facility] Oct 25, 2016 Problems Problem Type Condition ICD-9 Code Onset Dates Condition Status Assessment Cough R05 Active Assessment Screening for colon cancer Z12.11 Active Assessment Urticaria L50.9 Active Assessment Acute non-recurrent maxillary sinusitis J01.00 Active Problem Vitamin D deficiency E55.9 Active Problem LGSIL (low grade squamous intraepithelial lesion) on Pap smear 796.9 Active Problem Other headache syndrome G44.89 Active Problem Anxiety state F41.1 Active Problem Other and unspecified hyperlipidemia E78.5 Active Problem Human papillomavirus A63.0 Active Problem Attention deficit disorder F90.0 Active Medications Medication Code System Code Instructions Start Date End Date Status Dosage Adderall XR [facility] [address]-64 Orally Once a day Active 1 capsule in the morning Levaquin [facility] [address]-12 500 MG Orally Once a day Oct 25, 2016 Nov 04, 2016 Active 1 tablet Loratadine [facility] [address]-23 10 MG Orally Once a day Oct 25, 2016 Nov 24, 2016 Active 1 tablet Social History Social History Element Qualifiers Date Reported Depression Screening: . negative Oct 25, 2016 Last Colonoscopy: . never Oct 25, 2016 Last Bone Density: . never Oct 25, 2016 Ethnicity . Status Oct 25, 2016 Where or with whom do you live ? . with self Oct 25, 2016 Flu Vaccine: . 08/2016 at her job Oct 25, 2016 children . 2 Oct 25, 2016 Tobacco Use: . Are you a: never smoker Oct 25, 2016 Use of recreational / street drugs? . Answer: No Oct 25, 2016 Marital Status: single. Oct 25, 2016 Do you drink alcohol? . Status: Yes, Type: Wine, How often? 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
--- OUTSIDE RECORDS SUMMARY | 2019-07-02 23:33 | XMS REPORT ---
Author Author Eleni Zapata [facility] eClinicalWorks Address Unknown Phone Unavailable Care Team Providers Care Transportation Operations Manager Name Role Phone Eleni Zapata CP Unavailable Allergies, Adverse Reactions, Alerts Substance Reaction Event Type penicillin hives Drug Allergy Iodine difficulty breathing Drug Allergy Encounters Encounter Location Date FEVER [facility] Jun 24, [...] [facility] Aug 03, 2013 medication change [facility] January 19, 2014 RASH ON RIGHT LEG [facility] April 12, 2016 Coughing, congestion, sore throat [facility] March 13, 2016 FEVER/EAR [facility] Oct 27, 2013 ear aches [facility] January 13, 2014 left ankle pain [facility] June 06, 2015 sick [facility] Oct 24, 2015 sinus [facility] April 18, 2015 LEFT ANKLE PAIN (STILL HAVING PAIN) [facility] May 02, 2015 COUGH/SORE THROAT [facility] February 13, 2015 LEFT ANKLE PAIN [facility] March 20, 2015 sinus,ears [facility] March 16, 2014 RIGHT FOOT PAIN [facility] January 17, 2015 Cough, congestion, sore throat [facility] January 18, 2016 Problems Problem Type Condition ICD-9 Code Onset Dates Condition Status Assessment Shingles B02.9 Active Assessment Attention deficit disorder F90.0 Active Assessment Anxiety F41.9 Active Problem Vitamin D deficiency E55.9 Active Problem Human papillomavirus A63.0 Active Problem LGSIL (low grade squamous intraepithelial lesion) on Pap smear 796.9 Active Problem Other and unspecified hyperlipidemia E78.5 Active Assessment Screening for breast cancer Z12.39 Active Problem Attention deficit disorder F90.0 Active Problem Anxiety state F41.1 Active Medications Medication Code System Code Instructions Start Date End Date Status Dosage [facility] [address]-60 50 MG Orally Once a day Active 1 tablet [facility]derall [facility]R [facility] [address]-08 Orally Once a day Active 1 capsule in the morning Valtrex [facility] [address]-63 1 GM Orally every 8 hours April 12, 2016 April 19, 2016 Active 1 tablet Lidoderm [facility] [address]-63 5 % Externally Once a day April 12, 2016 May 12, 2016 Active 1 patch to intact skin remove after 12 hours Social History Social History Element Qualifiers Date Reported Depression Screening: . negative April 12, 2016 Last Colonoscopy: . never April 12, 2016 Last Bone Density: . never April 12, 2016 Ethnicity . Status April 12, 2016 Where or with whom do you live ? . with self April 12, 2016 Flu Vaccine: . 2015 April 12, 2016 children . 2 April 12, 2016 Tobacco Use: . Are you a: never smoker April 12, 2016 Use of recreational / street drugs? . Answer: No April 12, 2016 Marital Status: single. April 12, 2016 Do you drink alcohol? . Status: Yes, Type: Wine, How often? 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
--- OUTSIDE RECORDS SUMMARY | 2019-07-02 23:33 | XMS REPORT ---
Author Author Tabitha Amato [facility] eClinicalWorks Address Unknown Phone Unavailable Care Team Providers Care Passenger Elevator Operator Name Role Phone Tabitha Amato Unavailable Encounters Encounter Location Date FEVER [facility] Jun 24, 2013 std check [facility] Aug 24, 2013 WWE [facility] Sep 14, 2013 follow-up [facility] Sep 23, 2013 Follow-Up [facility] Jul 06, 2013 FOLLOW-UP [facility] Jul 16, 2013 EAR [facility] Aug 03, 2013 medication change [facility] January 19, 2014 RASH ON RIGHT LEG [facility] April 12, 2016 Coughing, congestion, sore throat [facility] March 13, 2016 FEVER/EAR [facility] Oct 27, 2013 ear aches [facility] January 13, 2014 left ankle pain [facility] June 06, 2015 sick [facility] Oct 24, 2015 sinus [facility] April 18, 2015 LEFT ANKLE PAIN (STILL HAVING PAIN) [facility] May 02, 2015 PAIN ON THE RIGHT LEG [facility] April 24, 2016 COUGH/SORE THROAT [facility] February 13, 2015 Unknown [facility] May 08, 2016 LEFT ANKLE PAIN [facility] March 20, 2015 sinus,ears [facility] March 16, 2014 RIGHT FOOT PAIN [facility] January 17, 2015 Cough, congestion, sore throat [facility] January 18, 2016 Problems Problem Type Condition ICD-9 Code Onset Dates Condition Status Problem Vitamin D deficiency E55.9 Active Problem Human papillomavirus A63.0 Active Problem LGSIL (low grade squamous intraepithelial lesion) on Pap smear 796.9 Active Problem Other and unspecified hyperlipidemia E78.5 Active Problem Attention deficit disorder F90.0 Active Problem Anxiety state F41.1 Active Social History Social History Element Qualifiers Date Reported Depression Screening: . negative April 24, 2016 Last Colonoscopy: . never April 24, 2016 Last Bone Density: . never April 24, 2016 Ethnicity . Status April 24, 2016 Where or with whom do you live ? . with self April 24, 2016 Flu Vaccine: . 2015 April 24, 2016 children . 2 April 24, 2016 Tobacco Use: . Are you a: never smoker April 24, 2016 Use of recreational / street drugs? . Answer: No April 24, 2016 Marital Status: single. April 24, 2016 Do you drink alcohol? . Status: Yes, Type: Wine, How often? 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
--- OUTSIDE RECORDS SUMMARY | 2019-07-02 23:33 | XMS REPORT ---
Author Author Dee Vela [facility] eClinicalWorks Address Unknown Phone Unavailable Care Team Providers Care Cash Applications Coordinator Name Role Phone Dee Vela Unavailable Allergies, Adverse Reactions, Alerts Substance Reaction Event Type penicillin hives Drug Allergy Iodine difficulty breathing Drug Allergy Encounters Encounter Location Date FEVER [facility] Jun 24, [address] [facility] Aug 24, [address] [facility] Sep 14, 2013 follow-up [facility] Sep 23, 2013 Follow-Up [facility] Jul 06, 2013 FOLLOW-UP [facility] Jul 16, [address] [facility] Aug 03, 2013 FEVER/EAR [facility] Oct 27, 2013 Problems Problem Type Condition ICD-9 Code Onset Dates Condition Status Assessment Nasal sinus congestion 478.19 Active Assessment Cough 786.2 Active Problem Vitamin d deficiency 268.9 Active Problem HPV (human papilloma virus) infection 079.4 Active Problem LGSIL (low grade squamous intraepithelial lesion) on Pap smear 796.9 Active Problem Hyperlipidemia 272.4 Active Assessment Upper respiratory infection 465.9 Active Problem ADD (attention deficit disorder) 314.00 Active Problem Anxiety 300.00 Active Medications Medication Code System Code Instructions Start Date End Date Status Dosage Vitamin D (Ergocalciferol) [facility] [address]-12 17741 UNIT Orally weekly Sep 23, 2013 March 22, 2014 Active 1 capsule Levaquin [facility] [address]-64 500 mg Orally Once a day Oct 27, 2013 Nov 03, 2013 Active 1 tablet Vyvanse [facility] [address]-28 20 MG Orally Once a day Active 1 capsule in the morning Bromfed DM [facility] [address]-59 30-2-10 MG/5ML Orally every 6 hrs Oct 27, 2013 Nov 01, 2013 Active 10 ml as needed Zoloft [facility] [address]-04 50 MG Orally Once a day Active 1 tablet Advil [facility] [address]-33 200 MG Orally every 6 hrs Active 1 tablet as needed Mucinex [facility] [address]-25 600 MG Orally every 12 hrs Active 1 tablet as needed Social History Social History Element Qualifiers Date Reported Ethnicity . Status Oct 27, 2013 Where or with whom do you live ? . with self Oct 27, 2013 children . 2 Oct 27, 2013 Tobacco Use: . Are you a: never smoker Oct 27, 2013 Use of recreational / street drugs? . Answer: No Oct 27, 2013 Marital Status: single. Oct 27, 2013 Do you drink alcohol? . Status: Yes, Type: Wine, How often? 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
--- OUTSIDE RECORDS SUMMARY | 2019-07-02 23:33 | XMS REPORT ---
Author Author Nenita Burden Organization eClinicalWorks Address Unknown Phone Unavailable Care Team Providers Care Head Operator Name Role Phone Nenita Burden Unavailable Allergies, Adverse Reactions, Alerts Substance Reaction Event Type penicillin hives Drug Allergy Iodine difficulty breathing Drug Allergy Encounters Encounter Location Date FEVER [facility] Jun 24, 2013 std check [facility] Aug 24, 2013 WWE [facility] Sep 14, 2013 follow-up [facility] Sep 23, 2013 Follow-Up [facility] Jul 06, 2013 FOLLOW-UP [facility] Jul 16, 2013 EAR [facility] Aug 03, 2013 medication change [facility] January 19, 2014 FEVER/EAR [facility] Oct 27, 2013 ear aches [facility] January 13, 2014 left ankle pain [facility] June 06, 2015 sick [facility] Oct 24, 2015 sinus [facility] April 18, 2015 LEFT ANKLE PAIN (STILL HAVING PAIN) [facility] May 02, 2015 COUGH/SORE THROAT [facility] February 13, 2015 LEFT ANKLE PAIN [facility] March 20, 2015 sinus,ears [facility] March 16, 2014 RIGHT FOOT PAIN [facility] January 17, 2015 Problems Problem Type Condition ICD-9 Code Onset Dates Condition Status Assessment URI (upper respiratory infection) J06.9 Active Problem Vitamin d deficiency 268.9 Active Problem HPV (human papilloma virus) infection 079.4 Active Problem LGSIL (low grade squamous intraepithelial lesion) on Pap smear 796.9 Active Problem Hyperlipidemia 272.4 Active Assessment SOB (shortness of breath) R06.02 Active Problem ADD (attention deficit disorder) 314.00 Active Problem Anxiety 300.00 Active Medications Medication Code System Code Instructions Start Date End Date Status Dosage Zoloft [facility] [address]-49 50 MG Orally Once a day Active 1 tablet ProAir HFA [facility] [address]-57 108 (90 Base) MCG/ACT Inhalation every 4 hrs Oct 24, 2015 Active 2 puffs as needed Levaquin [facility] [address]-29 500 mg Orally Once a day Oct 24, 2015 Nov 03, 2015 Active 1 tablet Vyvanse [facility] [address]-70 20 MG Orally Once a day Active 1 capsule in the morning Nasonex [facility] [address]-29 50 MCG/ACT Nasally Once a day January 13, 2014 Active 2 sprays in each nostril Bromfed DM [facility] [address]-99 30-2-10 MG/5ML Orally every 6 hrs as needed Oct 24, 2015 Nov 03, 2015 Active 10 ml as needed Social History Social History Element Qualifiers Date Reported Last Bone Density: . never Oct 24, 2015 Last Colonoscopy: . never Oct 24, 2015 Ethnicity . Status Oct 24, 2015 Where or with whom do you live ? . with self Oct 24, 2015 Flu Vaccine: . 2014 Oct 24, 2015 children . 2 Oct 24, 2015 Tobacco Use: . Are you a: never smoker Oct 24, 2015 Use of recreational / street drugs? . Answer: No Oct 24, 2015 Marital Status: single. Oct 24, 2015 Do you drink alcohol? . Status: Yes, Type: Wine, How often? 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
--- OUTSIDE RECORDS SUMMARY | 2019-07-02 23:33 | XMS REPORT ---
Author Author Mary Hernandez [facility] eClinicalWorks Address Unknown Phone Unavailable Care Team Providers Care Dairy Bar Manager Name Role Phone Mary Hernandez CP Unavailable Allergies, Adverse Reactions, Alerts Substance Reaction Event Type penicillin hives Drug Allergy Iodine difficulty breathing Drug Allergy Encounters Encounter Location Date FEVER [facility] Jun 24, 2013 std check [facility] Aug 24, 2013 WWE [facility] Sep 14, 2013 follow-up [facility] Sep 23, 2013 Follow-Up [facility] Jul 06, 2013 FOLLOW-UP [facility] Jul 16, 2013 EAR [facility] Aug 03, 2013 medication change [facility] January 19, 2014 FEVER/EAR [facility] Oct 27, 2013 ear aches [facility] January 13, 2014 left ankle pain [facility] June 06, 2015 sinus [facility] April 18, 2015 LEFT ANKLE PAIN (STILL HAVING PAIN) [facility] May 02, 2015 COUGH/SORE THROAT [facility] February 13, 2015 LEFT ANKLE PAIN [facility] March 20, 2015 sinus,ears [facility] March 16, 2014 RIGHT FOOT PAIN [facility] January 17, 2015 Problems Problem Type Condition ICD-9 Code Onset Dates Condition Status Problem Vitamin d deficiency 268.9 Active Problem HPV (human papilloma virus) infection 079.4 Active Problem LGSIL (low grade squamous intraepithelial lesion) on Pap smear 796.9 Active Problem Hyperlipidemia 272.4 Active Assessment Left ankle pain 719.47 Active Problem ADD (attention deficit disorder) 314.00 Active Problem Anxiety 300.00 Active Medications Medication Code System Code Instructions Start Date End Date Status Dosage Vyvanse [email or web address] [address]-87 20 MG Orally Once a day Active 1 capsule in the morning Nasonex [email or web address] [address]-41 50 MCG/ACT Nasally Once a day January 13, 2014 Active 2 sprays in each nostril Naproxen [facility] [address]-12 500 mg Orally every 12 hrs May 02, 2015 Jul 01, 2015 Active 1 tablet as needed Zoloft [facility] [address]-31 50 MG Orally Once a day Active 1 tablet Social History Social History Element Qualifiers Date Reported Last Bone Density: . never June 06, 2015 Last Colonoscopy: . never June 06, 2015 Ethnicity . Status June 06, 2015 Where or with whom do you live ? . with self June 06, 2015 Flu Vaccine: . 2014 June 06, 2015 children . 2 June 06, 2015 Tobacco Use: . Are you a: never smoker June 06, 2015 Use of recreational / street drugs? . Answer: No June 06, 2015 Marital Status: single. June 06, 2015 Do you drink alcohol? . Status: Yes, Type: Wine, How often? 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
--- OUTSIDE RECORDS SUMMARY | 2019-07-02 23:33 | XMS REPORT ---
Author Author Mary Hernandez [facility] eClinicalWorks Address Unknown Phone Unavailable Care Team Providers Care Sheet Metal Pattern Cutter Name Role Phone Mary Hernandez CP Unavailable Allergies, Adverse Reactions, Alerts Substance Reaction Event Type penicillin hives Drug Allergy Iodine difficulty breathing Drug Allergy Encounters Encounter Location Date FEVER [facility] Jun 24, 2013 std check [facility] Aug 24, 2013 WWE [facility] Sep 14, 2013 follow-up [facility] Sep 23, 2013 Follow-Up [facility] Jul 06, 2013 FOLLOW-UP [facility] Jul 16, 2013 EAR [facility] Aug 03, 2013 medication change [facility] January 19, 2014 FEVER/EAR [facility] Oct 27, 2013 ear aches [facility] January 13, 2014 COUGH/SORE THROAT [facility] February 13, 2015 sinus,ears [facility] March 16, 2014 RIGHT FOOT PAIN [facility] January 17, 2015 Problems Problem Type Condition ICD-9 Code Onset Dates Condition Status Assessment Cough 786.2 Active Assessment Sore throat 462 Active Problem Vitamin d deficiency 268.9 Active Problem HPV (human papilloma virus) infection 079.4 Active Problem LGSIL (low grade squamous intraepithelial lesion) on Pap smear 796.9 Active Problem Hyperlipidemia 272.4 Active Assessment Upper respiratory infection 465.9 Active Problem ADD (attention deficit disorder) 314.00 Active Problem Anxiety 300.00 Active Medications Medication Code System Code Instructions Start Date End Date Status Dosage Zoloft [facility] [address]-45 50 MG Orally Once a day Active 1 tablet Prempro [facility] [address]-31 0.625-2.5 MG Orally Once a day Active 1 tablet Bromfed DM [facility] [address]-82 30-2-10 MG/5ML Orally every 6 hrs February 13, 2015 February 23, 2015 Active 10 ml as needed Zorvolex [facility] [address]-93 35 MG Orally Three times a day as needed for foot pain January 17, 2015 March 18, 2015 Active 1 capsule Vyvanse [facility] [address]-99 20 MG Orally Once a day Active 1 capsule in the morning Nasonex [facility] [address]-98 50 MCG/ACT Nasally Once a day January 13, 2014 Active 2 sprays in each nostril Social History Social History Element Qualifiers Date Reported Flu Vaccine: . 2012February 13, 2015 Ethnicity . Status February 13, 2015 Where or with whom do you live ? . with self February 13, 2015 children . 2 February 13, 2015 Tobacco Use: . Are you a: never smoker February 13, 2015 Use of recreational / street drugs? . Answer: No February 13, 2015 Marital Status: single. February 13, 2015 Do you drink alcohol? . Status: Yes, Type: Wine, How often? 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
--- OUTSIDE RECORDS SUMMARY | 2019-07-02 23:33 | XMS REPORT ---
Author Author Eleni Zapata [facility] eClinicalWorks Address Unknown Phone Unavailable Care Team Providers Care Vacuum Form Operator Name Role Phone Eleni Zapata CP Unavailable Encounters Encounter Location Date FEVER [facility] Jun 24, 2013 std check [facility] Aug 24, 2013 WWE [facility] Sep 14, 2013 follow-up [facility] Sep 23, 2013 Follow-Up [facility] Jul 06, 2013 FOLLOW-UP [facility] Jul 16, 2013 EAR [facility] Aug 03, 2013 medication change [facility] January 19, 2014 RASH ON RIGHT LEG [facility] April 12, 2016 Coughing, congestion, sore throat [facility] March 13, 2016 FEVER/EAR [facility] Oct 27, 2013 ear aches [facility] January 13, 2014 left ankle pain [facility] June 06, 2015 sick [facility] Oct 24, 2015 sinus [facility] April 18, 2015 LEFT ANKLE PAIN (STILL HAVING PAIN) [facility] May 02, 2015 PAIN ON THE RIGHT LEG [facility] April 24, 2016 COUGH/SORE THROAT [facility] February 13, 2015 LEFT ANKLE PAIN [facility] March 20, 2015 sinus,ears [facility] March 16, 2014 RIGHT FOOT PAIN [facility] January 17, 2015 Cough, congestion, sore throat [facility] January 18, 2016 Problems Problem Type Condition ICD-9 Code Onset Dates Condition Status Assessment Shingles B02.9 Active Assessment Joint pain M25.50 Active Assessment Left ankle swelling M25.472 Active Assessment Low back pain M54.5 Active Problem Vitamin D deficiency E55.9 Active Problem Human papillomavirus A63.0 Active Problem LGSIL (low grade squamous intraepithelial lesion) on Pap smear 796.9 Active Problem Other and unspecified hyperlipidemia E78.5 Active Assessment Body aches R52 Active Problem Attention deficit disorder F90.0 Active Problem Anxiety state F41.1 Active Medications Medication Code System Code Instructions Start Date End Date Status Dosage Lidoderm [facility] [address]-66 5 % Externally Once a day April 12, 2016 May 12, 2016 Active 1 patch to intact skin remove after 12 hours Naproxen [facility] [address]-66 375 MG Orally Twice a day April 24, 2016 May 24, 2016 Active 1 tablet Adderall XR [facility] [address]-73 Orally Once a day Active 1 capsule in the morning Zoloft [facility] [address]-69 50 MG Orally Once a day Active [...] often? 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
--- OUTSIDE RECORDS SUMMARY | 2019-07-02 23:33 | XMS REPORT ---
Author Author Mary Hernandez [facility] eClinicalWorks Address Unknown Phone Unavailable Care Team Providers Care Email Marketing Assistant Name Role Phone Mary Hernandez CP Unavailable Allergies, Adverse Reactions, Alerts Substance Reaction Event Type penicillin hives Drug Allergy Iodine difficulty breathing Drug Allergy Encounters Encounter Location Date FEVER [facility] Jun 24, 2013 std check [facility] Aug 24, 2013 WWE [facility] Sep 14, 2013 follow-up [facility] Sep 23, 2013 Follow-Up [facility] Jul 06, 2013 FOLLOW-UP [facility] Jul 16, 2013 EAR [facility] Aug 03, 2013 medication change [facility] January 19, 2014 FEVER/EAR [facility] Oct 27, 2013 ear aches [facility] January 13, 2014 COUGH/SORE THROAT [facility] February 13, 2015 LEFT ANKLE PAIN [facility] March 20, 2015 sinus,ears [facility] March 16, 2014 RIGHT FOOT PAIN [facility] January 17, 2015 Problems Problem Type Condition ICD-9 Code Onset Dates Condition Status Problem Vitamin d deficiency 268.9 Active Problem HPV (human papilloma virus) infection 079.4 Active Problem LGSIL (low grade squamous intraepithelial lesion) on Pap smear 796.9 Active Problem Hyperlipidemia 272.4 Active Assessment Left ankle sprain 845.00 Active Problem ADD (attention deficit disorder) 314.00 Active Problem Anxiety 300.00 Active Medications Medication Code System Code Instructions Start Date End Date Status Dosage Prempro [facility] [address]-18 0.625-2.5 MG Orally Once a day Active 1 tablet Vyvanse [facility] [address]-21 20 MG Orally Once a day Active 1 capsule in the morning Medrol (Jermain) [facility] [address]-52 4 mg Orally daily March 20, 2015 March 26, 2015 Active as directed [facility] [address]-57 50 MCG/ACT Nasally Once a day January 13, 2014 Active 2 sprays in each nostril Zoloft [facility] [address]-64 50 MG Orally Once a day Active 1 tablet Social History Social History Element Qualifiers Date Reported Flu Vaccine: . 2013 March 20, 2015 Ethnicity . Status March 20, 2015 Where or with whom do you live ? . with self March 20, 2015 children . 2 March 20, 2015 Tobacco Use: . Are you a: never smoker March 20, 2015 Use of recreational / street drugs? . Answer: No March 20, 2015 Marital Status: single. March 20, 2015 Do you drink alcohol? . Status: Yes, Type: Wine, How often? 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
--- OUTSIDE RECORDS SUMMARY | 2019-07-02 23:33 | XMS REPORT ---
Author Author Jennifer Barraza eClinicalWorks Address Unknown Phone Unavailable Care Team Providers Care Laser Engraver Name Role Phone Jennifer Barraza Unavailable Allergies, Adverse Reactions, Alerts Substance Reaction Event Type penicillin hives Drug Allergy Iodine difficulty breathing Drug Allergy Encounters Encounter Location Date FEVER [facility] Jun 24, 2013 std check [facility] Aug 24, 2013 WWE [facility] Sep 14, 2013 follow-up [facility] Sep 23, 2013 Follow-Up [facility] Jul 06, 2013 FOLLOW-UP [facility] Jul 16, 2013 EAR [facility] Aug 03, 2013 medication change [facility] January 19, 2014 RASH ON RIGHT LEG [facility] April 12, 2016 Coughing, congestion, sore throat [facility] March 13, 2016 FEVER/EAR [facility] Oct 27, 2013 ear aches [facility] January 13, 2014 left ankle pain [facility] June 06, 2015 sick [facility] Oct 24, 2015 sinus [facility] April 18, 2015 LEFT ANKLE PAIN (STILL HAVING PAIN) [facility] May 02, 2015 PAIN ON THE RIGHT LEG [facility] April 24, 2016 COUGH/SORE THROAT [facility] February 13, 2015 Unknown [facility] May 08, 2016 LEFT ANKLE PAIN [facility] March 20, 2015 HEADACHES AND BP ISSUES [facility] Sep 03, 2016 sinus,ears [facility] March 16, 2014 RIGHT FOOT PAIN [facility] January 17, 2015 Cough, congestion, sore throat [facility] January 18, 2016 Problems Problem Type Condition ICD-9 Code Onset Dates Condition Status Assessment Acute non-recurrent maxillary sinusitis J01.00 Active Assessment Other headache syndrome G44.89 Active Problem Vitamin D deficiency E55.9 Active Problem LGSIL (low grade squamous intraepithelial lesion) on Pap smear 796.9 Active Problem Other headache syndrome G44.89 Active Problem Anxiety state F41.1 Active Problem Other and unspecified hyperlipidemia E78.5 Active Problem Human papillomavirus A63.0 Active Problem Attention deficit disorder F90.0 Active Medications Medication Code System Code Instructions Start Date End Date Status Dosage Zithromax MEDISPAN [address]-98 250 MG Orally Once a day Sep 03, 2016 Sep 08, 2016 Active 2 tablets on the first day, then 1 tablet daily for 4 days Adderall XR MED[facility] [address]-19 Orally Once a day Active 1 capsule in the morning Naproxen [facility] [address]-87 500 MG Orally every 12 hrs prn Sep 03, 2016 Oct 03, 2016 Active 1 tablet as needed Zoloft [facility] [address]-31 50 MG Orally Once a day Active 1 tablet Social History Social History Element Qualifiers Date Reported Depression Screening: . negative Sep 03, 2016 Last Colonoscopy: . never Sep 03, 2016 Last Bone Density: . never Sep 03, 2016 Ethnicity . Status Sep 03, 2016 Where or with whom do you live ? . with self Sep 03, 2016 Flu Vaccine: . 08/2016 at her job Sep 03, 2016 children . 2 Sep 03, 2016 Tobacco Use: . Are you a: never smoker Sep 03, 2016 Use of recreational / street drugs? . Answer: No Sep 03, 2016 Marital Status: single. Sep 03, 2016 Do you drink alcohol? . Status: Yes, Type: Wine, How often? 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
--- OUTSIDE RECORDS SUMMARY | 2019-07-02 23:33 | XMS REPORT ---
Author Author Codi Hernández [facility] eClinicalWorks Address Unknown Phone Unavailable Care Team Providers Care Chef French Name Role Phone Codi Hernández CP Unavailable Allergies, Adverse Reactions, Alerts Substance Reaction Event Type penicillin hives Drug Allergy Iodine difficulty breathing Drug Allergy Encounters Encounter Location Date FEVER [facility] Jun 24, 2013 std check [facility] Aug 24, 2013 WWE [facility] Sep 14, 2013 follow-up [facility] Sep 23, 2013 Follow-Up [facility] Jul 06, 2013 sinus,ears [facility] March 16, 2014 FOLLOW-UP [facility] Jul 16, 2013 EAR [facility] Aug 03, 2013 medication change [facility] January 19, 2014 FEVER/EAR [facility] Oct 27, 2013 ear aches [facility] January 13, 2014 Problems Problem Type Condition ICD-9 Code Onset Dates Condition Status Assessment Serous otitis media 381.4 Active Assessment Chronic serous otitis media 381.10 Active Problem Vitamin d deficiency 268.9 Active Problem HPV (human papilloma virus) infection 079.4 Active Problem LGSIL (low grade squamous intraepithelial lesion) on Pap smear 796.9 Active Problem Hyperlipidemia 272.4 Active Assessment Acute sinusitis 461.9 Active Problem ADD (attention deficit disorder) 314.00 Active Problem Anxiety 300.00 Active Medications Medication Code System Code Instructions Start Date End Date Status Dosage [facility] [address]-34 10 mg Orally Once a day March 16, 2014 Active 1 tablet in the evening Mucinex [facility] [address]-01 600 MG Orally every 12 hrs Active 1 tablet as needed Vitamin D (Ergocalciferol) [facility] [address]-66 55529 UNIT Orally weekly Sep 23, 2013 March 22, 2014 Active 1 capsule Nasonex [facility] [address]-62 50 MCG/ACT Nasally Once a day January 13, 2014 Active 2 sprays in each nostril Dallergy [facility] [address]-71 25-10 MG Orally every six to eight hours as needed March 16, 2014 April 13, 2014 Active 1 tablet Vyvanse [facility] [address]-69 20 MG Orally Once a day Active 1 capsule in the morning Advil [facility] [address]-05 200 MG Orally every 6 hrs Active 1 tablet as needed [facility] [address]-76 50 MG Orally Once a day Active 1 tablet Bactrim DS [facility] [address]-93 800-160 MG Orally every 12 hrs March 16, 2014 March 23, 2014 Active 1 tablet Social History Social History Element Qualifiers Date Reported Flu Vaccine: . 2012March 16, 2014 Ethnicity . Status March 16, 2014 Where or with whom do you live ? . with self March 16, 2014 children . 2 March 16, 2014 Tobacco Use: . Are you a: never smoker March 16, 2014 Use of recreational / street drugs? . Answer: No March 16, 2014 Marital Status: single. March 16, 2014 Do you drink alcohol? . Status: Yes, Type: Wine, How often? 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
--- OUTSIDE RECORDS SUMMARY | 2019-07-02 23:33 | XMS REPORT ---
Author Author Jennifer Barraza eClinicalWorks Address Unknown Phone Unavailable Care Team Providers Care Bottle Inspector Name Role Phone Jennifer Barraza Unavailable Allergies, Adverse Reactions, Alerts Substance Reaction Event Type penicillin hives Drug Allergy Iodine difficulty breathing Drug Allergy Encounters Encounter Location Date FEVER [facility] Jun 24, [address] [facility] Aug 24, [address] [facility] Sep 14, 2013 follow-up [facility] Sep 23, 2013 Follow-Up [facility] Jul 06, 2013 FOLLOW-UP [facility] Jul 16, [address] [facility] Aug 03, [address] [facility] January 19, 2014 Coughing, congestion, sore throat [facility] March 13, 2016 FEVER/EAR [facility] Oct 27, [address] [facility] January 13, 2014 left ankle pain [facility] June 06, [address] [facility] Oct 24, [address] [facility] April 18, 2015 LEFT ANKLE PAIN (STILL HAVING PAIN) [facility] May 02, 2015 COUGH/SORE THROAT [facility] February 13, 2015 LEFT ANKLE PAIN [facility] March 20, 2015 sinus,ears [facility] March 16, 2014 RIGHT FOOT PAIN [facility] January 17, 2015 Cough, congestion, sore throat [facility] January 18, 2016 Problems Problem Type Condition ICD-9 Code Onset Dates Condition Status Problem Vitamin d deficiency 268.9 Active Problem HPV (human papilloma virus) infection 079.4 Active Problem LGSIL (low grade squamous intraepithelial lesion) on Pap smear 796.9 Active Problem Hyperlipidemia 272.4 Active Assessment Upper respiratory infection J06.9 Active Problem ADD (attention deficit disorder) 314.00 Active Problem Anxiety 300.00 Active Medications Medication Code System Code Instructions Start Date End Date Status Dosage Norel [facility] 76015-664-66 4-10-325 MG Orally every 4-6 hours January 18, 2016 Active 1 tablet as needed Levaquin [facility] [address]-59 500 mg Orally Once a day March 13, 2016 March 20, 2016 Active [address] [facility] [address]-49 Orally Once a day Active 1 capsule in the morning Zoloft [facility] [address]-01 50 MG Orally Once a day Active [address] [facility] [address]-45 30-2-10 MG/5ML Orally every 6 hrs prn March 13, 2016 March 20, 2016 Active 10 ml as needed Social History Social History Element Qualifiers Date Reported Depression Screening: . negative March 13, 2016 Last Colonoscopy: . never March 13, 2016 Last Bone Density: . never March 13, 2016 Ethnicity . Status March 13, 2016 Where or with whom do you live ? . with self March 13, 2016 Flu Vaccine: . 2015 March 13, 2016 children . 2 March 13, 2016 Tobacco Use: . Are you a: never smoker March 13, 2016 Use of recreational / street drugs? . Answer: No March 13, 2016 Marital Status: single. March 13, 2016 Do you drink alcohol? . Status: Yes, Type: Wine, How often? 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
--- OUTSIDE RECORDS SUMMARY | 2019-07-02 23:33 | XMS REPORT ---
Author Author Ana Quintanilla [facility] eClinicalWorks Address Unknown Phone Unavailable Care Team Providers Care Marketing Database Analyst Name Role Phone Ana Quintanilla CP Unavailable Allergies, Adverse Reactions, Alerts Substance Reaction Event Type penicillin hives Drug Allergy Iodine difficulty breathing Drug Allergy Encounters Encounter Location Date FEVER [facility] Aug [facility], 2013 medication change [facility] January 19, 2014 FEVER/EAR [facility] Oct 27, 2013 ear aches [facility] January 13, 2014 sinus [facility] April 18, 2015 COUGH[facility]SORE [facility]RO[facility] [...] ICD-9 Code Onset Dates Condition Status Assessment LGSIL (low grade squamous intraepithelial lesion) on Pap smear 796.9 Active Assessment Sore throat 462 Active Assessment Fever 780.60 Active Assessment Influenza A 487.1 Active Assessment Hyperlipidemia 272.4 Active Problem Vitamin d deficiency 268.9 Active Problem HPV (human papilloma virus) infection 079.4 Active Problem LGSIL (low grade squamous intraepithelial lesion) on Pap smear 796.9 Active Problem Hyperlipidemia 272.4 Active Assessment Sinusitis 473.9 Active Problem ADD (attention deficit disorder) 314.00 Active Problem Anxiety 300.00 Active Medications Medication Code System Code Instructions Start Date End Date Status Dosage Zoloft MEDISPAN [address]-52 50 MG Orally Once a day Active 1 tablet Prempro [facility] [address]-27 0.625-2.5 MG Orally Once a day Active 1 tablet Nasonex [facility] [address]-76 50 MCG/ACT Nasally Once a day January 13, 2014 Active 2 sprays in each nostril Vyvanse [facility] [address]-32 20 MG Orally Once a day Active 1 capsule in the morning Bromfed DM [facility] [address]-03 30-2-10 MG/5ML Orally every 6 hrs April 18, 2015 April 28, 2015 Active 10 ml as needed Tamiflu [facility] [address]-12 75 mg Orally Twice a day April 18, 2015 Active 1 capsule Zithromax Z-Jermain [facility] [address]-52 250 MG Orally Once a day April 18, 2015 April 23, 2015 Active 2 tablets on the first day, then 1 tablet daily for 4 days Social History Social History Element Qualifiers Date Reported Last Bone Density: . never April 18, 2015 Last Colonoscopy: . never April 18, 2015 Ethnicity . Status April 18, 2015 Where or with whom do you live ? . with self April 18, 2015 Flu Vaccine: . 2014 April 18, 2015 children . 2 April 18, 2015 Tobacco Use: . Are you a: never smoker April 18, 2015 Use of recreational / street drugs? . Answer: No April 18, 2015 Marital Status: single. April 18, 2015 Do you drink alcohol? . Status: Yes, Type: Wine, How often? 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
--- OUTSIDE RECORDS SUMMARY | 2019-07-02 23:33 | XMS REPORT ---
Author Author Jennifer Barraza eClinicalWorks Address Unknown Phone Unavailable Care Team Providers Care City Driver Name Role Phone Jennifer Barraza Unavailable Allergies, Adverse Reactions, Alerts Substance Reaction Event Type penicillin hives Drug Allergy Iodine difficulty breathing Drug Allergy Encounters Encounter Location Date FEVER [facility] Jun 24, 2013 std check [facility] Aug 24, 2013 WWE [facility] Sep 14, 2013 follow-up [facility] Sep 23, 2013 Follow-Up [facility] Jul 06, 2013 FOLLOW-UP [facility] Jul 16, 2013 EAR [facility] Aug 03, 2013 medication change [facility] January 19, 2014 FEVER/EAR [facility] Oct 27, 2013 ear aches [facility] January 13, 2014 left ankle pain [facility] June 06, 2015 sick [facility] Oct 24, 2015 sinus [facility] April 18, 2015 LEFT ANKLE PAIN (STILL HAVING PAIN) [facility] May 02, 2015 COUGH/SORE THROAT [facility] February 13, 2015 LEFT ANKLE PAIN [facility] March 20, 2015 sinus,ears [facility] March 16, 2014 RIGHT FOOT PAIN [facility] January 17, 2015 Cough, congestion, sore throat [facility] January 18, 2016 Problems Problem Type Condition ICD-9 Code Onset Dates Condition Status Assessment Cough R05 Active Problem Vitamin d deficiency 268.9 Active Problem HPV (human papilloma virus) infection 079.4 Active Problem LGSIL (low grade squamous intraepithelial lesion) on Pap smear 796.9 Active Problem Hyperlipidemia 272.4 Active Assessment Acute sinusitis, unspecified J01.90 Active Problem ADD (attention deficit disorder) 314.00 Active Problem Anxiety 300.00 Active Medications Medication Code System Code Instructions Start Date End Date Status Dosage Norel AD [facility] 13567-078-27 4-10-325 MG Orally every 4-6 hours January 18, 2016 Active 1 tablet as needed Bromfed DM [facility] [address]-92 30-2-10 MG/5ML Orally every 6 hrs January 18, 2016 January 28, 2016 Active 10 ml as needed Zoloft [facility] [address]-73 50 MG Orally Once a day Active 1 tablet ProAir HFA [facility] [address]-10 108 (90 Base) MCG/ACT Inhalation every 4 hrs Oct 24, 2015 Active 2 puffs as needed Vyvanse [facility] [address]-31 20 MG Orally Once a day Active 1 capsule in the morning Adderall XR [facility] [address]-32 Orally Once a day Active 1 capsule in the morning Levaquin [facility] [address]-11 500 mg Orally Once a day January 18, 2016 January 28, 2016 Active 1 tablet Social History Social History Element Qualifiers Date Reported Depression Screening: . negative January 18, 2016 Last Colonoscopy: . never January 18, 2016 Last Bone Density: . never January 18, 2016 Ethnicity . Status January 18, 2016 Where or with whom do you live ? . with self January 18, 2016 Flu Vaccine: . 2015 January 18, 2016 children . 2 January 18, 2016 Tobacco Use: . Are you a: never smoker January 18, 2016 Use of recreational / street drugs? . Answer: No January 18, 2016 Marital Status: single. January 18, 2016 Do you drink alcohol? . Status: Yes, Type: Wine, How often? 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
--- OUTSIDE RECORDS SUMMARY | 2019-07-02 23:34 | XMS REPORT ---
Author Author Jennifer Barraza [facility] eClinicalWorks Address Unknown Phone Unavailable Care Team Providers Care Chauffeur Name Role Phone Jennifer Barraza Unavailable Allergies, Adverse Reactions, Alerts Substance Reaction Event Type penicillin hives Drug Allergy Iodine difficulty breathing Drug Allergy Encounters Encounter Location Date medication change [facility] January 19, 2014 left ankle pain [facility] June 06, 2015 sick [facility] Oct 24, 2015 sinus [facility] April 18, 2015 LEFT ANKLE PAIN (STILL HAVING PAIN) [facility] May 02, 2015 COUGH/SORE THROAT [facility] February 13, 2015 LEFT ANKLE PAIN [facility] March 20, 2015 sinus,ears [facility] March 16, 2014 RIGHT FOOT PAIN [facility] January 17, 2015 Cough, congestion, sore throat [facility] January 18, 2016 FEVER [facility] Aug 03, 2013 RASH ON RIGHT LEG [facility] April 12, 2016 Coughing, congestion, sore throat [facility] March 13, 2016 FEVER/EAR [facility] Oct 27, 2013 ear aches [facility] January 13, 2014 HIVES [facility] Nov 18, 2016 PAIN ON THE RIGHT LEG [facility] April 24, 2016 Unknown [facility] May 08, 2016 HEADACHES AND BP ISSUES [facility] Sep 03, 2016 congestion [facility] Oct 25, 2016 Problems Problem Type Condition ICD-9 Code Onset Dates Condition Status Assessment Hives L50.9 Active Problem Vitamin D deficiency E55.9 Active Problem LGSIL (low grade squamous intraepithelial lesion) on Pap smear 796.9 Active Problem Other headache syndrome G44.89 Active Problem Anxiety state F41.1 Active Problem Other and unspecified hyperlipidemia E78.5 Active Problem Human papillomavirus A63.0 Active Problem Attention deficit disorder F90.0 Active Medications Medication Code System Code Instructions Start Date End Date Status Dosage Medrol (Jermain) Unknown 0 4 MG Orally as directed Nov 18, 2016 Nov 24, 2016 Active as directed [facility] [address]-52 10 MG Orally Once a day Oct 25, 2016 Nov 24, 2016 Active 1 tablet Adderall XR [facility] [address]-03 20 MG Orally Once a day Active 1 capsule in the morning Social History Social History Element Qualifiers Date Reported Depression Screening: . negative Nov 18, [...] often? 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
[2019-07-02] MEDS ORDERED: KETOROLAC TROMETHAMINE 60 MG/2 ML VIAL IM ONE (23:45)
[2019-07-02] MEDS ORDERED: KETOROLAC TROMETHAMINE 60 MG/2 ML VIAL ONE (23:46)
--- NOTE | 2019-07-03 01:07 | Diagnostic Imaging Report ---
EXAM: CT Abdomen and Pelvis WITHOUT contrast INDICATION: Abdominal pain COMPARISON: None. TECHNIQUE: Abdomen and pelvis were scanned utilizing a multidetector helical scanner from the lung base to the pubic symphysis without administration of IV contrast. Absence of intravenous contrast decreases sensitivity for detection of focal lesions and vascular pathology. Coronal and sagittal reformations were obtained. Routine protocol was performed. IV CONTRAST: None ORAL CONTRAST: None COMPLICATIONS: None RADIATION DOSE: Total DLP: 777 mGy*cm Estimated effective dose: (DLP x 0.015 x size factor) mSv CTDIvol has been reviewed. It is below the limits set by the Radiation Protocol Committee (RPC). Dose modulation, iterative reconstruction, and/or weight based adjustment of the mA/kV was utilized to reduce the radiation dose to as low as reasonably achievable. FINDINGS: LINES and TUBES: None. LOWER THORAX: Unremarkable HEPATOBILIARY: The liver is diffusely hypodense. No focal hepatic lesions. No biliary ductal dilation. GALLBLADDER: There are cholecystectomy clips. SPLEEN: No splenomegaly. PANCREAS: No focal masses or ductal dilatation. ADRENALS: No adrenal nodules KIDNEYS/URETERS: No hydronephrosis. No cystic or solid mass lesions. No stones. GI TRACT: No abnormal distention, wall thickening, or evidence of bowel obstruction. Appendix is normal. PELVIC ORGANS/BLADDER: Unremarkable. Right pelvic phlebolith. LYMPH NODES: Slightly prominent mesenteric lymph nodes.. VESSELS: Unremarkable. PERITONEUM / RETROPERITONEUM: No free air or fluid. Subtle mesenteric edema along the mesenteric root. BONES: There are degenerative changes in the lumbar spine. SOFT TISSUES: There is a fat containing para-umbilical hernia. IMPRESSION: Slightly prominent mesenteric lymph nodes and mild mesenteric edema along the mesenteric root can be seen in setting of mesenteric panniculitis. Hepatic steatosis. Signed by: Wilmer Harper DO on 07/03/2019 1:04 AM
[2019-07-03] MEDS ORDERED: CIPROFLOXACIN 500 MG TAB PO STA (01:17)
[2019-07-03] MEDS ORDERED: CIPROFLOXACIN 500 MG TAB ONE (01:21)
== END 2019-07-03 01:26 | disposition home or self-care (01) ==
LOC: FSED 23:26
DX: N30.91 Cystitis, unspecified with hematuria (principal); K80.80 Other cholelithiasis without obstruction
CPT/HCPCS: 74176; 81003; 99283; J1885